=== PATIENT | female | born 1940 | race Caucasian/White ===

== ENCOUNTER 2018-08-19 11:30 | Outpatient (RCR) | payer MEDICARE, SELFPAY ==
[2018-08-01 13:54] VITALS: BP 181/89; PULSE 69; RESP 20; TEMP 36.5; BMI 46.0
--- NOTE | 2018-08-01 15:47 | HP.PCM_ITS ---
(1) Chronic venous insufficiency Status: Chronic Current Visit: Yes Code(s): I87.2 - Venous insufficiency (chronic) (peripheral) (2) Varicose veins with ulcer and inflammation Status: Chronic Current Visit: Yes Code(s): I83.209 - Varicose veins of unspecified lower extremity with both ulcer of unspecified site and inflammation; L97.909 - Non-pressure chronic ulcer of unspecified part of unspecified lower leg with unspecified severity (3) Chronic venous hypertension with ulcer and inflammation Status: Chronic Current Visit: Yes Qualifiers: Laterality: right Qualified Code(s): I87.331 - Chronic venous hypertension (idiopathic) with ulcer and inflammation of right lower extremity; L97.919 - Non-pressure chronic ulcer of unspecified part of right lower leg with unspecified severity Code(s): I87.339 - Chronic venous hypertension (idiopathic) with ulcer and inflammation of unspecified lower extremity; L97.909 - Non-pressure chronic ulcer of unspecified part of unspecified lower leg with unspecified severity (4) 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 Status: Chronic Current Visit: Yes Code(s): I87.039 - Postthrombotic s yndrome with ulcer and inflammation of unspecified lower extremity (5) Leg swelling Status: Chronic Current Visit: Yes Code(s): M79.89 - Other specified soft tissue disorders (6) Leg edema Status: Chronic Current Visit: Yes Code(s): R60.0 - Localized edema (7) History of superficial thrombophlebitis Status: Chronic Current Visit: Yes (8) History of venous ulceration Status: Chronic Current Visit: Yes (9) Venous ulcer of ankle Status: Chronic Current Visit: Yes Qualifiers: Varicose vein presence: with varicose veins Laterality: right Non- pressure ulcer stage: with fat layer exposed Qualified Code(s): I83.013 - Varicose veins of right lower extremity with ulcer of ankle; L97.312 - Non- pressure chronic ulcer of right ankle with fat layer exposed Code(s): I83.003 - Varicose veins of unspecified lower extremity with ulcer of ankle; L97.309 - Non-pressure chronic ulcer of unspecified ankle with unspecified severity (10) Morbid obesity with BMI of 45.0-49.9, adult Status: Chronic Current Visit: Yes Code(s): E66.01 - Morbid (severe) obesity due to excess calories; Z68.42 - Body mass index (BMI) 45.0-49.9, adult (11) Hyperlipidemia Status: Chronic Current Visit: No Code(s): E78.5 - Hyperlipidemia, unspecified (12) Lipodermatosclerosis Status: Chronic Current Visit: Yes Qualifiers: Laterality: bilateral Qualified Code(s): I83.11 - Varicose veins of right lower extremity with inflammation; I83.12 - Varicose veins of left lower extremity with inflammation Code(s): I83.10 - Varicose veins of unspecified lower extremity with inflammation (13) Hyperpigmentation Status: Chronic Current Visit: Yes Code(s): L81.9 - Disorder of pigmentation, unspecified History of Present Illness Date of Service: 08/01/18 Chief Complaint: Chronic venous insufficiency, varicose veins with ulcer and inflammation, chronic venous hypertension with ulcer and inflammation, postphlebitic syndrome with ulcer and inflammation, history of superficial thrombophlebitis, swelling, edema, venous ulcer -right lower extremity History of Wound: This is a 77-year-old female with a long-standing history of chronic venous disease. She presents with an ulceration near the right medial malleolus which is been present for approximately 3 months. It occurred spontaneously, without any history of trauma. She has a history of superficial thrombophlebitis in the right lower extremity. This occurred nearly 30 years ago. She suffers from lower extremity varicose veins, and experiences swelling and edema in her lower extremities at days end. She sleeps in a recumbent position at night, with her legs are slightly elevated. However, she is not very active, and spends long hours each day with her legs in a dependent position. She is morbidly obese. With respect to the current ulceration in the region of her right medial malleolus, she has been using an Unna boot for the last week, but had previously used Aquacel Ag. She has been under the care of Dr. Zelaya. She is also currently taking clindamycin, prescribed in treatment for her right lower extremity ulceration. Patient has been previously treated for an ulceration near the left medial malleolus. Treatment was rendered at the [facility] in [place], [place], by Dr. Denys Aldana. Patient underwent endovenous laser ablation of the left great saphenous vein in February 2018. As result, her left lower extremity venous ulceration has healed, and has remained healed. Past Medical History Past Medical History: Chronic Problems Chronic venous insufficiency (Chronic) Varicose veins with ulcer and inflammation (Chronic) Chronic venous hypertension with ulcer and inflammation (Chronic) 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 (Chronic) Leg swelling (Chronic) Leg edema (Chronic) History of superficial thrombophlebitis (Chronic) History of venous ulceration (Chronic) Venous ulcer of ankle (Chronic) Morbid obesity with BMI of 45.0-49.9, adult (Chronic) Hyperlipidemia (Chronic) Lipodermatosclerosis (Chronic) Hyperpigmentation (Chronic) Past Medical History: Patient has a history of hyperlipidemia and obesity. She also suffers from chronic venous disease, as discussed above. Her history is negative for myocardial infarction, congestive heart failure, cerebrovascular accident, diabetes mellitus, pulmonary disease, renal disease, cancer, and thyroid disease. Surgical History: - - The patient has previously undergone open reduction and internal fixation of the right ankle, in approximately 1989. She is undergone laparoscopic cholecystectomy and right total hip replacement in the past. The patient is a G4, P1 AB 3 (spontaneous) Allergies/Adverse Reactions: Allergies acetaminophen [From Percocet] Allergy (Verified 08/01/18 14:07) Other oxycodone [From Percocet] Allergy (Verified 08/01/18 14:07) Other Home Medications: Ambulatory Orders Medication Instructions Recorded Vitamin B Complex 08/01/18 Vitamin D 1,000 iu PO DAILY 08/01/18 Zoloft 1 mg DAILY 08/01/18 Social History: Patient lives with her , who is severely ill, suffering from cerebrovascular accident, congestive heart failure, and dementia. She does not use alcohol or tobacco products. Lives: Spouse/ Significant Other Smoking Status: Never smoker Tobacco Use: Non-smoker Alcohol: None Drugs: None Review of Systems Constitutional: Denies: Chills, Fever, Weight Change Eyes: Denies: Pain, Vision Change HEENT: Denies: Difficulty Hearing, Difficulty Swallowing, Sinus Congestion Cardiovascular: Denies: Chest Pain, Palpitations Respiratory: Denies: Cough, Shortness of Breath Gastrointestinal: Denies: Diarrhea, Nausea, Vomiting Genitourinary: Denies: Dysuria, Hematuria Endocrine: Denies: Heat/ Cold Intolerance, Polydipsia, Polyuria Hematologic/ Lymphatic: Denies: Easy Bruising, Easy Bleeding - Physical Exam Vital Signs Temp Pulse Resp BP 97.7 F L 69 20 H 181/89 H 08/01/18 13:54 08/01/18 13:54 08/01/18 13:54 08/01/18 13:54 General: Alert, Oriented x3, Cooperative, No apparent distress, Well developed, Well nourished, - - Patient is obese HEENT: Atraumatic, PERRLA, EOMI, Normocephalic Oral: Moist Mucosa Neck: Supple, No JVD, Negative Carotid Bruits, Negative Hepatojugular Reflux, No Nodes, No Nuchal Rigidity, Trachea Midline Lungs: Clear to auscultation, Normal air movement, No rhonchi, No wheeze, No rales Cardiovascular: Regular rate, Regular Rhythm, Normal S1, Normal S2, No murmurs Abdomen: Soft, Non Tender, Non-Distended, Obese Extremities: No clubbing, No cyanosis, No Calf Tenderness, - - Bilateral lower extremity swelling and edema are noted. Multiple varicosities are noted bilaterally, of various sizes. A healed venous ulceration is noted near the left medial malleolus. An open ulceration is noted near the right medial malleolus. Dimensions are documented elsewhere. There is a mild amount of bioburden and nonviable tissue. There is no obvious sign of infection or cellulitis, though swab cultures were obtained. Hyperpigmentation and lipodermatosclerosis are noted in the gaiter areas bilaterally. Peripheral lower extremities are warm and well perfused. Wound Measurements and Assessment WC - Nurse 1 - General Ulcer Measurement Start: 08/01/18 13:13 Freq: Status: Active Protocol: Activity Type Activity Date Activity User E-Sign Co-Sign Detail Recorded Client Recorded Date Recorded By Document 08/01/18 13:54 AN [id number] 08/01/18 14:19 AN 08/01/18 13:54 Wound Center Nurse 1 [Ulcer Assessment] #1 right medial ankle cluster -Combined with other wound No -Current Size (cm) - Length 4.8 -Current Size (cm) - Width 1.1 -Current Size (cm) - Depth 0.2 -Total Square Cm 5.28 -Date of Last Picture (Recall this 08/01/18 field) -Photo Taken Yes -Classification - Thickness Full Thickness without Exposed Support Structure -Exudate Amt Medium -Exudate Type Serosanguineous -Wound Margin Distinct, Outline Attached -Granulation Amt Large (67-100%) -Granulation Quality Red -Slough/Fibrin Yes -Necrosis Amt Small (1-33%) -Necrotic Tissue Type Adherent Slough -Structure Exposed None/Limited to Skin Breakdown -Texture (Capri-wound Skin Appearance) Assessed Localized Edema -Moisture (Capri-wound Skin Appearance Assessed ) -Color (Capri-wound Skin Appearance) Assessed -Temperature (Capri-wound Skin Cool/Cold Appearance) -Tenderness on Palpation (Capri-wound Yes Skin Appearance) -Ulcer Cleansing Rinsed/ Irrigated with Saline -Foul Odor after Cleansing No -Anesthetic Used 4% Lidocaine Solution [Edema Assessment] -Right Calf (cm) 39.3 -Right Ankle (cm) 25.7 -Left Calf (cm) 44 -Left Ankle (cm) 25.4 WC - Nurse 2 - General Ulcer CM Notes Start: 08/01/18 13:13 Freq: Status: Active Protocol: Activity Type Activity Date Activity User E-Sign Co-Sign Detail Recorded Client Recorded Date Recorded By Document 08/01/18 14:42 DV [id number] 08/01/18 14:59 DV 08/01/18 14:42 Wound Center Nurse 2 [Procedure/Treatment] #1 right medial ankle cluster -Time 14:42 -Correct Patient Yes -Correct Side, Site, Position Yes -Correct Procedure Yes -Procedure Performed Yes -Type of Procedure Debridement -Clinical Debridement Subcutaneous -Post Debridement Size (cm) - Length 5.0 -Post Debridement Size (cm) - Width 1.5 -Post Debridement Size (cm) - Depth 0.2 -Total Square Cm 7.50 -Wound/Ulcer Outcome Not Healed -Ulcer Cleansing Rinsed/ Irrigated with Saline -Foul Odor after Cleansing No -Bioengineered Tissue No -Bleeding Controlled with Pressure -Offloading No -Treatment Response Procedure Tolerated Well [See Physician Procedure note for Specifics] Pain Scale: 0-10 Numeric [Pain] -Is Patient Pain Free? Yes Musculoskeletal: No Muscle Wasting Neurological: Cranial nerves II-XII grossly intact, Neuro grossly intact Psych/Mental Status: Normal Affect, Appropriate, Alert and oriented to time, place, person, mood and affect Debridement Note Post-Debridement Measurements/Treatment WC - Nurse 2 - General Ulcer CM Notes Start: 08/01/18 13:13 Freq: Status: Active Protocol: Activity Type Activity Date Activity User E-Sign Co-Sign Detail Recorded Client Recorded Date Recorded By Document 08/01/18 14:42 DV [id number] 08/01/18 14:59 DV 08/01/18 14:42 Wound Center Nurse 2 #1 right medial ankle cluster -Time 14:42 -Correct Patient Yes -Correct Side, Site, Position Yes -Correct Procedure Yes -Procedure Performed Yes -Type of Procedure Debridement -Clinical Debridement Subcutaneous -Post Debridement Size (cm) - Length 5.0 -Post Debridement Size (cm) - Width 1.5 -Post Debridement Size (cm) - Depth 0.2 -Total Square Cm 7.50 -Wound/Ulcer Outcome Not Healed -Ulcer Cleansing Rinsed/ Irrigated with Saline -Foul Odor after Cleansing No -Bioengineered Tissue No -Bleeding Controlled with Pressure -Offloading No -Treatment Response Procedure Tolerated Well Pain Scale: 0-10 Numeric Is Patient Pain Free? Yes Laterality: Right - Medial malleolus Type of Debridement: Excisional debridement Anesthesia Used: 5% Lidocaine Gel Depth: Down to and including healthy tissue, in the subcutaneous layer Percentage of wound debrided: 100 Instrument Used: 5mm curette Tissue Removed: Bioburden and nonviable tissue Severity: Fat Layer Exposed Amount of bleeding with debridement: Mild Bleeding Controlled with: Compression and gauze Patient tolerated procedure well Assessment/Plan Active Problems Chronic venous insufficiency (Chronic) Varicose veins with ulcer and inflammation (Chronic) Chronic venous hypertension with ulcer and inflammation (Chronic) 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 (Chronic) Leg swelling (Chronic) Leg edema (Chronic) History of superficial thrombophlebitis (Chronic) History of venous ulceration (Chronic) Venous ulcer of ankle (Chronic) Morbid obesity with BMI of 45.0-49.9, adult (Chronic) Lipodermatosclerosis (Chronic) Hyperpigmentation (Chronic) Assessment: This is a 77-year-old female with a long-standing history of chronic venous insufficiency, varicose veins with ulceration and inflammation, postphlebitic syndrome with ulceration and inflammation, venous hypertension with ulceration and inflammation, and lower extremity swelling and edema. She presents with an ulceration near the right medial malleolus which has been present for approximately 3 months, and appears related to the patient's chronic venous disease. She has previously had a venous ulceration near the left me dial malleolus, which was treated by means of endovenous laser ablation of the left great saphenous vein earlier this year, in [place], [place]. Patient presents at this time for evaluation and management relative to the ulceration near the right medial malleolus. She is accompanied today by extensive medical records. Unfortunately, many of the records which have been provided are unreadable due to degradation by fax transmission. Stents of laboratory studies have been obtained within the last week through the [facility] laboratory system. Due to eligibility, we are to request re-transmission of this data. A noninvasive lower extremity arterial study was performed as well through the [facility] system, revealing no evidence of arterial insufficiency in either lower extremity. Records from [facility] have also been obtained, and have been reviewed. Plan: We are to implement a regimen of conservative treatment. The measures recommended have been discussed with the patient in detail, as well as with her daughter who is at the bedside. The patient is to elevate her lower extremities as much as possible. Elevation is to be to heart level, or higher. This is to be accomplished as much as possible. The patient is to continue sleeping in a recumbent position with her legs elevated. Leg elevation is to be implemented even during daytime hours. The patient has been encouraged to ambulate and to increase her activity. Prolonged idle standing and sitting has been discouraged. Weight loss has been recommended. Optimization of the patient's oral intake has been advised. We are to implement compression to the lower extremities by means of 3M 2 layer compression wraps to each lower extremity. These compression wraps are to be changed twice weekly. The patient would appear likely to tolerate this degree of compression, given that her noninvasive lower extremity arterial studies demonstrated no evidence of significant arterial occlusive disease when performed within the last year. We are to obtain a noninvasive lower extremity venous study, and the patient is to return for reevaluation in 1 week. Ultimately, the patient may benefit from endothermal ablation of the right great saphenous vein, depending upon the results of her impending venous study. Such a procedure was performed in the left lower extremity, with evidence of patient benefit. Influenza vaccine was not administered today. The patient is not a smoker. She weighs 277 pounds. She stands 5 feet 5 inches tall. Her BMI is 46. This places her in a class III obesity category. Weight loss has been recommended, in collaboration with the patient's primary care physician has been advised.
[2018-08-09 11:47] VITALS: BP 173/82; PULSE 65; RESP 18; TEMP 36.5; BMI 46.0
--- NOTE | 2018-08-09 13:47 | HP.PCM_ITS ---
(1) Chronic venous insufficiency Status: Chronic Current Visit: Yes Code(s): I87.2 - Venous insufficiency (chronic) (peripheral) (2) Varicose veins with ulcer and inflammation Status: Chronic Current Visit: Yes Code(s): I83.209 - Varicose veins of unspecified lower extremity with both ulcer of unspecified site and inflammation; L97.909 - Non-pressure chronic ulcer of unspecified part of unspecified lower leg with unspecified severity (3) Chronic venous hypertension with ulcer and inflammation Status: Chronic Current Visit: Yes Qualifiers: Laterality: right Qualified Code(s): I87.331 - Chronic venous hypertension (idiopathic) with ulcer and inflammation of right lower extremity; L97.919 - Non-pressure chronic ulcer of unspecified part of right lower leg with unspecified severity Code(s): I87.339 - Chronic venous hypertension (idiopathic) with ulcer and inflammation of unspecified lower extremity; L97.909 - Non-pressure chronic ulcer of unspecified part of unspecified lower leg with unspecified severity (4) 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 Status: Chronic Current Visit: Yes Code(s): I87.039 - Postthrombotic s yndrome with ulcer and inflammation of unspecified lower extremity (5) Leg swelling Status: Chronic Current Visit: Yes Code(s): M79.89 - Other specified soft tissue disorders (6) Leg edema Status: Chronic Current Visit: Yes Code(s): R60.0 - Localized edema (7) History of superficial thrombophlebitis Status: Chronic Current Visit: Yes (8) History of venous ulceration Status: Chronic Current Visit: Yes (9) Venous ulcer of ankle Status: Chronic Current Visit: Yes Qualifiers: Varicose vein presence: with varicose veins Laterality: right Non- pressure ulcer stage: with fat layer exposed Qualified Code(s): I83.013 - Varicose veins of right lower extremity with ulcer of ankle; L97.312 - Non- pressure chronic ulcer of right ankle with fat layer exposed Code(s): I83.003 - Varicose veins of unspecified lower extremity with ulcer of ankle; L97.309 - Non-pressure chronic ulcer of unspecified ankle with unspecified severity (10) Morbid obesity with BMI of 45.0-49.9, adult Status: Chronic Current Visit: Yes Code(s): E66.01 - Morbid (severe) obesity due to excess calories; Z68.42 - Body mass index (BMI) 45.0-49.9, adult (11) Hyperlipidemia Status: Chronic Current Visit: No Code(s): E78.5 - Hyperlipidemia, unspecified (12) Lipodermatosclerosis Status: Chronic Current Visit: Yes Qualifiers: Laterality: bilateral Qualified Code(s): I83.11 - Varicose veins of right lower extremity with inflammation; I83.12 - Varicose veins of left lower extremity with inflammation Code(s): I83.10 - Varicose veins of unspecified lower extremity with inflammation (13) Hyperpigmentation Status: Chronic Current Visit: Yes Code(s): L81.9 - Disorder of pigmentation, unspecified History of Present Illness Date of Service: 08/09/18 Chief Complaint: Chronic venous insufficiency, varicose veins with ulcer and inflammation, chronic venous hypertension with ulcer and inflammation, postphlebitic syndrome with ulcer and inflammation, history of superficial thrombophlebitis, swelling, edema, venous ulcer -right lower extremity History of Wound: This is a 77-year-old female with a long-standing history of chronic venous disease. She presents with an ulceration near the right medial malleolus which had been present for approximately 3 months. It occurred spontaneously, without any history of trauma. She has a history of superficial thrombophlebitis in the right lower extremity. This occurred nearly 30 years ago. She suffers from lower extremity varicose veins, and experiences swelling and edema in her lower extremities at days end. She sleeps in a recumbent position at night, with her legs slightly elevated. However, she is not very active, and spends long hours each day with her legs in a dependent position. She is morbidly obese. With respect to the current ulceration in the region of her right medial malleolus, she has been using an [employer] boot recently, but had previously used [employer] Ag. She has been under the care of Dr. Zelaya. She was recently prescribed clindamycin in treatment for her right lower extremity ulceration. The patient has been previously treated for an ulceration near the left medial malleolus. Treatment was rendered at the [facility] in [place], [place], by Dr. Denys Aldana. The patient underwent endovenous laser ablation of the left great saphenous vein in February 2018. As result, her left lower extremity venous ulceration has healed, and has remained healed. Past Medical History Past Medical History: Chronic Problems Chronic venous insufficiency (Chronic) Varicose veins with ulcer and inflammation (Chronic) Chronic venous hypertension with ulcer and inflammation (Chronic) 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 (Chronic) Leg swelling (Chronic) Leg edema (Chronic) History of superficial thrombophlebitis (Chronic) History of venous ulceration (Chronic) Venous ulcer of ankle (Chronic) Morbid obesity with BMI of 45.0-49.9, adult (Chronic) Hyperlipidemia (Chronic) Lipodermatosclerosis (Chronic) Hyperpigmentation (Chronic) Surgical History: - - The patient has previously undergone open reduction and internal fixation of the right ankle, in approximately 1989. She is undergone laparoscopic cholecystectomy and right total hip replacement in the past. The p atient is a G4, P1 AB 3 (spontaneous) Allergies/Adverse Reactions: Allergies acetaminophen [From Percocet] Allergy (Verified 08/01/18 14:07) Other oxycodone [From Percocet] Allergy (Verified 08/01/18 14:07) Other Home Medications: Ambulatory Orders Medication Instructions Recorded Vitamin B Complex 08/01/18 Vitamin D 1,000 iu PO DAILY 08/01/18 Zoloft 1 mg DAILY 08/01/18 Lives: Spouse/ Significant Other Smoking Status: Never smoker Tobacco Use: Non-smoker Alcohol: None Drugs: None Review of Systems Constitutional: Denies: Chills, Fever, Weight Change Eyes: Denies: Pain, Vision Change HEENT: Denies: Difficulty Hearing, Difficulty Swallowing, Sinus Congestion Cardiovascular: Denies: Chest Pain, Palpitations Respiratory: Denies: Cough, Shortness of Breath Gastrointestinal: Denies: Diarrhea, Nausea, Vomiting Genitourinary: Denies: Dysuria, Hematuria Endocrine: Denies: Heat/ Cold Intolerance, Polydipsia, Polyuria Hematologic/ Lymphatic: Denies: Easy Bruising, Easy Bleeding - Physical Exam Vital Signs Temp Pulse Resp BP 97.7 F L 65 18 173/82 H 08/09/18 11:47 08/09/18 11:47 08/09/18 11:47 08/09/18 11:47 General: Alert, Oriented x3, Cooperative, No apparent distress, Well developed, Well nourished HEENT: Atraumatic, PERRLA, EOMI, Normocephalic Oral: Moist Mucosa Neck: No JVD Lungs: Normal air movement Abdomen: Non-Distended Extremities: No clubbing, No cyanosis, No Calf Tenderness, - - Only slight swelling and edema are noted in the right lower extremity. The ulceration near the right medial malleolus persists. There is a small amount of bioburden and nonviable tissue present. There is no obvious infection or cellulitis. Dimensions are documented elsewhere. Wound Measurements and Assessment WC - Nurse 1 - General Ulcer Measurement Start: 08/01/18 13:13 Freq: Status: Active Protocol: Activity Type Activity Date Activity User E-Sign Co-Sign Detail Recorded Client Recorded Date Recorded By Document 08/09/18 11:47 RB [id number] 08/09/18 12:07 RB 08/09/18 11:47 Wound Center Nurse 1 [Ulcer Assessment] #1 right medial ankle cluster -Combined with other wound No -Current Size (cm) - Length 5.6 -Current Size (cm) - Width 2 -Current Size (cm) - Depth 0.3 -Total Square Cm 11.2 -Photo Taken No -Epithelialization Small 1-33% -Tunneling No -Undermining/Tunneling No -Circular Undermining No -Classification - Thickness Full Thickness with Exposed Support Structure -Exudate Amt Small -Exudate Type Serosanguineous -Wound Margin Distinct, Outline Attached -Granulation Amt Large (67-100%) -Granulation Quality Red -Slough/Fibrin Yes -Necrosis Amt Small (1-33%) -Necrotic Tissue Type Adherent Slough -Structure Exposed N/A -Texture (Capri-wound Skin Appearance) Assessed -Moisture (Capri-wound Skin Appearance Assessed ) -Color (Capri-wound Skin Appearance) Hemosiderin Staining -Temperature (Capri-wound Skin No Abnormality Appearance) (Pt Warm) -Tenderness on Palpation (Capri-wound No Skin Appearance) -Ulcer Cleansing Wound Cleanser -Foul Odor after Cleansing No -Anesthetic Used 4% Lidocaine Solution [Edema Assessment] -Lower Limb Edema Present Yes -Right Calf (cm) 43 -Right Ankle (cm) 23.8 -Left Calf (cm) 41.6 -Left Ankle (cm) 24 WC - Nurse 2 - General Ulcer CM Notes Start: 08/01/18 13:13 Freq: Status: Active Protocol: Activity Type Activity Date Activity User E-Sign Co-Sign Detail Recorded Client Recorded Date Recorded By Document 08/09/18 12:34 DV [id number] 08/09/18 12:41 DV 08/09/18 12:34 Wound Center Nurse 2 [Procedure/Treatment] #1 right medial ankle cluster -Time 12:37 -Correct Patient Yes -Correct Side, Site, Position Yes -Correct Procedure Yes -Procedure Performed Yes -Type of Procedure Debridement -Clinical Debridement Subcutaneous -Post Debridement Size (cm) - Length 5.5 -Post Debridement Size (cm) - Width 1.0 -Post Debridement Size (cm) - Depth 0.2 -Total Square Cm 5.50 -Wound/Ulcer Outcome Not Healed -Ulcer Cleansing Rinsed/ Irrigated with Saline -Foul Odor after Cleansing No -Bioengineered Tissue No -Bleeding Controlled with Pressure -Offloading No -Treatment Response Procedure Tolerated Well [See Physician Procedure note for Specifics] Pain Scale: 0-10 Numeric [Pain] -Is Patient Pain Free? Yes Neurological: Cranial nerves II-XII grossly intact, Neuro grossly intact Psych/Mental Status: Normal Affect, Appropriate, Alert and oriented to time, place, person, mood and affect Debridement Note Post-Debridement Measurements/Treatment WC - Nurse 2 - General Ulcer CM Notes Start: 08/01/18 13:13 Freq: Status: Active Protocol: Activity Type Activity Date Activity User E-Sign Co-Sign Detail Recorded Client Recorded Date Recorded By Document 08/01/18 14:42 DV [id number] 08/01/18 14:59 DV Document 08/09/18 12:34 DV [id number] 08/09/18 12:41 DV 08/01/18 08/09/18 14:42 12:34 Wound Center Nurse 2 #1 right medial ankle cluster -Time 14:42 12:37 -Correct Patient Yes Yes -Correct Side, Site, Position Yes Yes -Correct Procedure Yes Yes -Procedure Performed Yes Yes -Type of Procedure Debridement Debridement -Clinical Debridement Subcutaneous Subcutaneous -Post Debridement Size (cm) - Length 5.0 5.5 -Post Debridement Size (cm) - Width 1.5 1.0 -Post Debridement Size (cm) - Depth 0.2 0.2 -Total Square Cm 7.50 5.50 -Wound/Ulcer Outcome Not Healed Not Healed -Ulcer Cleansing Rinsed/ Rinsed/ Irrigated with Irrigated with Saline Saline -Foul Odor after Cleansing No No -Bioengineered Tissue No No -Bleeding Controlled with Pressure Pressure -Offloading No No -Treatment Response Procedure Procedure Tolerated Well Tolerated Well Pain Scale: 0-10 Numeric Is Patient Pain Free? Yes Yes Laterality: Right - Medial malleolus Type of Debridement: Excisional debridement Anesthesia Used: 5% Lidocaine Gel Depth: Down to and including healthy tissue, in the subcutaneous layer Percentage of wound debrided: 100 Instrument Used: 5mm curette Severity: Fat Layer Exposed Amount of bleeding with debridement: Mild Bleeding Controlled with: Compression and gauze Patient tolerated procedure well Assessment/Plan Active Problems Chronic venous insufficiency (Chronic) Varicose veins with ulcer and inflammation (Chronic) Chronic venous hypertension with ulcer and inflammation (Chronic) 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 (Chronic) Leg swelling (Chronic) Leg edema (Chronic) History of superficial thrombophlebitis (Chronic) History of venous ulceration (Chronic) Venous ulcer of ankle (Chronic) Morbid obesity with BMI of 45.0-49.9, adult (Chronic) Lipodermatosclerosis (Chronic) Hyperpigmentation (Chronic) Assessment: This is a 77-year-old female with a long-standing history of chronic venous insufficiency, varicose veins with ulceration and inflammation, postphlebitic syndrome with ulceration and inflammation, venous hypertension with ulceration and inflammation, and lower extremity swelling and edema. She presented with an ulceration near the right medial malleolus which had been present for approximately 3 months, and appears related to the patient's chronic venous disease. She has previously had a venous ulceration near the left medial malleolus, which was treated by means of endovenous laser ablation of the left great saphenous vein earlier this year, in [place], [place]. The patient presented for evaluation and management relative to the ulceration near the right medial malleolus. Many of the medical records which initially accompanied the patient are unreadable due to degradation by fax transmission. Laboratory studies have been performed recently at [facility] through the [facility] laboratory system. Due to illegibility, we have requested re- transmission of this data. The lab results have yet to arrive, and the patient's daughter has committed to retrieving these laboratory results from the patient's primary care physician in [place], [place]. A noninvasive lower extremity arterial study was performed as well through the [facility] system, revealing no evidence of arterial insufficiency in either lower extremity. Records from [facility] have also been obtained, and have been reviewed. Wound cultures performed last week were positive for Staphylococcus aureus, and the patient has been placed on Bactrim DS twice daily, which continues until the current time. Plan: We are to continue a regimen of conservative treatment. The measures recommended have been discussed with the patient in detail, as well as with her daughter, who is at the bedside. The patient is to elevate her lower extremities as much as possible. Elevation is to be to heart level, or higher. This is to be accomplished as much as possible. The patient is to continue sleeping in a recumbent position with her legs elevated. Leg elevation is to be implemented even during daytime hours. The patient has been encouraged to ambulate and to increase her activity. Prolonged idle standing and sitting has been discouraged. Weight loss has been recommended. Optimization of the patient's oral intake has been advised. We are to continue compression to the lower extremities by means of 3M 2 layer compression wrap to each lower extremit y. Aquacel Ag is to be continued topically to the wound near the right medial malleolus. The compression wraps and Aquacel Ag are to be changed twice weekly. The patient would appear likely to tolerate this degree of compression, given that her noninvasive lower extremity arterial studies demonstrated no evidence of significant arterial occlusive disease. We are to obtain a noninvasive lower extremity venous study later today, and the patient is to return for reevaluation in 1 week. Ultimately, the patient may benefit from endothermal ablation of the right great saphenous vein, depending upon the results of her impending venous study. Such a procedure was performed in the left lower extremity, with evidence of patient benefit. The patient is to continue her course of Bactrim DS to completion. Influenza vaccine was not administered today. The patient is not a smoker. She weighs 277 pounds. She stands 5 feet 5 inches tall. Her BMI is 46. This places her in a class III obesity category. Weight loss has been recommended, in collaboration with the patient's primary care physician has been advised.
--- NOTE | 2018-08-09 14:50 | VDLE_ITS ---
Reason For Study: Wound care RIGHT LEFT CFV is compressible, spontaneous, phasic, CFV is compressible, spontaneous, phasic, competent and demonstrates normal competent, and demonstrates normal augmentation. augmentation. FV is compressible, spontaneous, phasic, FV is compressible, spontaneous, phasic, competent and demonstrates normal competent and demonstrates normal augmentation. augmentation. POP V is compressible, spontaneous, phasic, POP V is compressible, spontaneous, phasic, competent and demonstrates normal competent and demonstrates normal augmentation. augmentation. T/P Trunk is compressible. T/P Trunk is compressible. PTV is compressible. PTV is compressible. RT PerV is compressible. LT PerV is compressible. SFJ is INCOMPETENT. SFJ is INCOMPETENT. GSV is INCOMMPETENT throughout for greater GSV above knee Hx of EVLA. than 0.5 seconds and measures 0.64 x 0.66 cm. GSV below knee is competent. ASV anterior thigh is INCOMPETENT for greater ASV from groin medially is INCOMPETENT for than 0.5 seconds and measures 0.50 x 0.50 cm. greater than 0.5 seconds and measures 0.48 x ASV 2 from groin medially is INCOMPETENT for 0.49 cm. greater than 0.5 seconds and measures 0.55 x ASV 2 from groin laterally is INCOMPETENT for 0.54 cm. greater than 0.5 seconds and measures 0.31 x INCOMPETENT cafe server 16 cm above medial 0.31 cm. malleolus. ASV 3 below knee is INCOMPETENT for greater SSV is competent. than 0.5 seconds and measures 0.45 x .0.59 Procedure cm. Exam performed in department. SSV is INCOMPETENT for greater than 0.5 A preliminary report was called and/or faxed seconds and measures 0.25 x 0.25 cm. to WC. Interpretation Summary Deep veins of the lower extremities are bilaterally patent and compressible segmentally. There is no evidence of deep vein thrombosis on either side. Valvular competence appears intact within the proximal deep venous systems bilaterally. The right greater saphenous vein appears patent and compressible segmentally. The left greater saphenous vein has been previously ablated above the knee, but is patent and compressible below the knee. Sapheno-femoral junctions are bilaterally incompetent . The right greater saphenous vein appears segmentally incompetent. The left greater saphenous vein below the knee is competent. The right small saphenous vein is patent and competent. The left small saphenous vein is patent and incompetent. Two incompetent accessory saphenous veins in the right thigh are noted to be incompetent. Two accessory saphenous veins in the left thigh are incompetent. An accessory saphenous vein below the left knee is incompetent. An incompetent cafe server vein is noted in the right calf, located 16 centimeters proximal to the right medial malleolus. Ordering Physician: Jl Ely Referring Physician: Jayden Smith MD Performed By: Marily Leon RVT
[2018-08-12 15:29] VITALS: BP 134/92; PULSE 71; RESP 16; TEMP 36.6; BMI 46.0
[2018-08-16 10:16] VITALS: BP 174/85; PULSE 68; RESP 18; TEMP 36.4; BMI 46.0
--- NOTE | 2018-08-16 11:41 | PCM.WC.HP ---
(1) Chronic venous insufficiency Status: Chronic Current Visit: Yes Code(s): I87.2 - Venous insufficiency (chronic) (peripheral) (2) Varicose veins with ulcer and inflammation Status: Chronic Current Visit: Yes Code(s): I83.209 - Varicose veins of unspecified lower extremity with both ulcer of unspecified site and inflammation; L97.909 - Non-pressure chronic ulcer of unspecified part of unspecified lower leg with unspecified severity (3) Chronic venous hypertension with ulcer and inflammation Status: Chronic Current Visit: Yes Qualifiers: Laterality: right Qualified Code(s): I87.331 - Chronic venous hypertension (idiopathic) with ulcer and inflammation of right lower extremity; L97.919 - Non-pressure chronic ulcer of unspecified part of right lower leg with unspecified severity Code(s): I87.339 - Chronic venous hypertension (idiopathic) with ulcer and inflammation of unspecified lower extremity; L97.909 - Non-pressure chronic ulcer of unspecified part of unspecified lower leg with unspecified severity (4) 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 Status: Chronic Current Visit: Yes Code(s): I87.039 - Postthrombotic syndrome with ulcer and inflammation of unspecified lower extremity (5) Leg swelling Status: Chronic Current Visit: Yes Code(s): M79.89 - Other specified soft tissue disorders (6) Leg edema Status: Chronic Current Visit: Yes Code(s): R60.0 - Localized edema (7) History of superficial thrombophlebitis Status: Chronic Current Visit: Yes (8) History of venous ulceration Status: Chronic Current Visit: Yes (9) Venous ulcer of ankle Status: Chronic Current Visit: Yes Qualifiers: Varicose vein presence: with varicose veins Laterality: right Non-pressure ulcer stage: with fat layer exposed Qualified Code(s): I83.013 - Varicose veins of right lower extremity with ulcer of ankle; L97.312 - Non-pressure chronic ulcer of right ankle with fat layer exposed Code(s): I83.003 - Varicose veins of unspecified lower extremity with ulcer of ankle; L97.309 - Non-pressure chronic ulcer of unspecified ankle with unspecified severity (10) Morbid obesity with BMI of 45.0-49.9, adult Status: Chronic Current Visit: Yes Code(s): E66.01 - Morbid (severe) obesity due to excess calories; Z68.42 - Body mass index (BMI) 45.0-49.9, adult (11) Hyperlipidemia Status: Chronic Current Visit: No Code(s): E78.5 - Hyperlipidemia, unspecified (12) Lipodermatosclerosis Status: Chronic Current Visit: Yes Qualifiers: Laterality: bilateral Qualified Code(s): I83.11 - Varicose veins of right lower extremity with inflammation; I83.12 - Varicose veins of left lower extremity with inflammation Code(s): I83.10 - Varicose veins of unspecified lower extremity with inflammation (13) Hyperpigmentation Status: Chronic Current Visit: Yes Code(s): L81.9 - Disorder of pigmentation, unspecified History of Present Illness Date of Service: 08/16/18 Chief Complaint: Chronic venous insufficiency, varicose veins with ulcer and inflammation, chronic venous hypertension with ulcer and inflammation, postphlebitic syndrome with ulcer and inflammation, history of superficial thrombophlebitis, swelling, edema, venous ulcer -right lower extremity History of Wound: This is a 77-year-old female with a long-standing history of chronic venous disease. She presents with an ulceration near the right medial malleolus which had been present for approximately 3 months. It occurred spontaneously, without any history of trauma. She has a history of superficial thrombophlebitis in the right lower extremity. This occurred nearly 30 years ago. She suffers from lower extremity varicose veins, and experiences swelling and edema in her lower extremities at days end. She sleeps in a recumbent position at night, with her legs slightly elevated. However, she is not very active, and spends long hours each day with her legs in a dependent position. She is morbidly obese. With respect to the current ulceration in the region of her right medial malleolus, she has been using an [employer] boot recently, but had previously used [employer] Ag. She has been under the care of Dr. Zelaya. She was recently prescribed clindamycin in treatment for her right lower extremity ulceration. The patient has been previously treated for an ulceration near the left medial malleolus. Treatment was rendered at the [facility] in [place], [place], by Dr. Denys Aldana. The patient underwent endovenous laser ablation of the left great saphenous vein in February 2018. As result, her left lower extremity venous ulceration has healed, and has remained healed. Past Medical History Past Medical History: Chronic Problems Chronic venous insufficiency (Chronic) Varicose veins with ulcer and inflammation (Chronic) Chronic venous hypertension with ulcer and inflammation (Chronic) 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 (Chronic) Leg swelling (Chronic) Leg edema (Chronic) History of superficial thrombophlebitis (Chronic) History of venous ulceration (Chronic) Venous ulcer of ankle (Chronic) Morbid obesity with BMI of 45.0-49.9, adult (Chronic) Hyperlipidemia (Chronic) Lipodermatosclerosis (Chronic) Hyperpigmentation (Chronic) Surgical History: - - The patient has previously undergone open reduction and internal fixation of the right ankle, in approximately 1989. She is undergone laparoscopic cholecystectomy and right total hip replacement in the past. The patient is a G4, P1 AB 3 (spontaneous) Allergies/Adverse Reactions: Allergies acetaminophen [From Percocet] Allergy (Verified 08/01/18 14:07) Other oxycodone [From Percocet] Allergy (Verified 08/01/18 14:07) Other Home Medications: Ambulatory Orders Medication Instructions Recorded Vitamin B Complex 08/01/18 Vitamin D 1,000 iu PO DAILY 08/01/18 Zoloft 1 mg DAILY 08/01/18 Lives: Spouse/ Significant Other Smoking Status: Never smoker Tobacco Use: Non-smoker Alcohol: None Drugs: None Review of Systems Constitutional: Denies: Chills, Fever, Weight Change Eyes: Denies: Pain, Vision Change HEENT: Denies: Difficulty Hearing, Difficulty Swallowing, Sinus Congestion Cardiovascular: Denies: Chest Pain, Palpitations Respiratory: Denies: Cough, Shortness of Breath Gastrointestinal: Denies: Diarrhea, Nausea, Vomiting Genitourinary: Denies: Dysuria, Hematuria Endocrine: Denies: Heat/ Cold Intolerance, Polydipsia, Polyuria Hematologic/ Lymphatic: Denies: Easy Bruising, Easy Bleeding - Physical Exam Vital Signs Temp Pulse Resp BP 97.5 F L 68 18 174/85 H 08/16/18 10:16 08/16/18 10:16 08/16/18 10:16 08/16/18 10:16 General: Alert, Oriented x3, Cooperative, No apparent distress, Well developed, Well nourished, - - The patient is obese HEENT: Atraumatic, PERRLA, EOMI, Normocephalic Oral: Moist Mucosa Neck: No JVD Lungs: Normal air movement Abdomen: Non-Distended Extremities: No clubbing, No cyanosis, No Calf Tenderness, - - The swelling and edema in the right lower extremity appears to be reasonably well controlled. The swelling and edema in the left lower extremity is also well controlled. The ulceration near the right medial malleolus is smaller in size. It is responding well to current management. There is a small amount of bioburden. Dimensions are documented elsewhere. Scattered varicosities are noted diffusely. Wound Measurements and Assessment WC - Nurse 1 - General Ulcer Measurement Start: 08/01/18 13:13 Freq: Status: Active Protocol: Activity Type Activity Date Activity User E-Sign Co-Sign Detail Recorded Client Recorded Date Recorded By Document 08/16/18 10:16 LENNY [id number] 08/16/18 10:28 LENNY 08/16/18 10:16 Wound Center Nurse 1 [Ulcer Assessment] #1 right medial ankle cluster -Combined with other wound No -Current Size (cm) - Length 0.6 -Current Size (cm) - Width 1.6 -Current Size (cm) - Depth 0.2 -Total Square Cm 0.96 -Photo Taken No -Epithelialization Large 67-100% -Tunneling No -Undermining/Tunneling No -Circular Undermining No -Exudate Amt Small -Exudate Type Serosanguineous -Wound Margin Flat & Intact -Granulation Amt Medium (34-66%) -Granulation Quality [facility] [facility] -Slough/Fibrin Yes -Necrosis Amt Medium (34-66%) -Necrotic Tissue Type Adherent Slough -Structure Exposed N/A -Texture (Capri-wound Skin Appearance) Assessed, Localized Edema -Moisture (Capri-wound Skin Appearance Assessed,Dry/ ) Scaly -Color (Capri-wound Skin Appearance) Assessed, Hemosiderin Staining -Temperature (Capri-wound Skin No Abnormality Appearance) (Pt Warm) -Tenderness on Palpation (Capri-wound No Skin Appearance) -Ulcer Cleansing Wound Cleanser -Foul Odor after Cleansing No -Anesthetic Used 5% Lidocaine Gel [Edema Assessment] -Lower Limb Edema Present Yes -Right Calf (cm) 40.5 -Right Ankle (cm) 25.2 -Left Calf (cm) 42.2 -Left Ankle (cm) 24.0 WC - Nurse 2 - General Ulcer CM Notes Start: 08/01/18 13:13 Freq: Status: Active Protocol: Activity Type Activity Date Activity User E-Sign Co-Sign Detail Recorded Client Recorded Date Recorded By Document 08/16/18 11:26 DV [id number] 08/16/18 11:30 DV 08/16/18 11:26 Wound Center Nurse 2 [Procedure/Treatment] #1 right medial ankle cluster -Time 11:27 -Correct Patient Yes -Correct Side, Site, Position Yes -Correct Procedure Yes -Procedure Performed Yes -Type of Procedure Debridement -Clinical Debridement Subcutaneous -Post Debridement Size (cm) - Length 0.9 -Post Debridement Size (cm) - Width 1.8 -Post Debridement Size (cm) - Depth 0.2 -Total Square Cm 1.62 -Wound/Ulcer Outcome Not Healed -Ulcer Cleansing Rinsed/ Irrigated with Saline -Foul Odor after Cleansing No -Bioengineered Tissue No -Bleeding Controlled with Pressure -Offloading No -Treatment Response Procedure Tolerated Well [See Physician Procedure note for Specifics] Pain Scale: 0-10 Numeric [Pain] -Is Patient Pain Free? Yes Musculoskeletal: No Muscle Wasting Neurological: Cranial nerves II-XII grossly intact, Neuro grossly intact Psych/Mental Status: Normal Affect, Appropriate, Alert and oriented to time, place, person, mood and affect Debridement Note Post-Debridement Measurements/Treatment - Nurse 2 - General Ulcer CM Notes Start: 08/01/18 13:13 Freq: Status: Active Protocol: Activity Type Activity Date Activity User E-Sign Co-Sign Detail Recorded Client Recorded Date Recorded By Document 08/01/18 14:42 DV [id number] 08/01/18 14:59 DV Document 08/09/18 12:34 DV [id number] 08/09/18 12:41 DV Document 08/16/18 11:26 DV [id number] 08/16/18 11:30 DV 08/01/18 08/09/18 08/16/18 14:42 12:34 11:26 Wound Center Nurse 2 #1 right medial ankle cluster -Time 14:42 12:37 11:27 -Correct Patient Yes Yes Yes -Correct Side, Site, Position Yes Yes Yes -Correct Procedure Yes Yes Yes -Procedure Performed Yes Yes Yes -Type of Procedure Debridement Debridement Debridement -Clinical Debridement Subcutaneous Subcutaneous Subcutaneous -Post Debridement Size (cm) - Length 5.0 5.5 0.9 -Post Debridement Size (cm) - Width 1.5 1.0 1.8 -Post Debridement Size (cm) - Depth 0.2 0.2 0.2 -Total Square Cm 7.50 5.50 1.62 -Wound/Ulcer Outcome Not Healed Not Healed Not Healed -Ulcer Cleansing Rinsed/ Rinsed/ Rinsed/ Irrigated with Irrigated with Irrigated with Saline Saline Saline -Foul Odor after Cleansing No No No -Bioengineered Tissue No No No -Bleeding Controlled with Pressure Pressure Pressure -Offloading No No No -Treatment Response Procedure Procedure Procedure Tolerated Well Tolerated Well Tolerated Well Pain Scale: 0-10 Numeric Is Patient Pain Free? Yes Yes Yes Laterality: Right - Medial malleolus Type of Debridement: Excisional debridement Anesthesia Used: 5% Lidocaine Gel Depth: Down to and including healthy tissue, in the subcutaneous layer Percentage of wound debrided: 100 Instrument Used: 3mm curette Tissue Removed: Bioburden and nonviable tissue Severity: Fat Layer Exposed Amount of bleeding with debridement: Mild Bleeding Controlled with: Compression and gauze Patient tolerated procedure well Assessment/Plan Active Problems Chronic venous insufficiency (Chronic) Varicose veins with ulcer and inflammation (Chronic) Chronic venous hypertension with ulcer and inflammation (Chronic) 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 (Chronic) Leg swelling (Chronic) Leg edema (Chronic) History of superficial thrombophlebitis (Chronic) History of venous ulceration (Chronic) Venous ulcer of ankle (Chronic) Morbid obesity with BMI of 45.0-49.9, adult (Chronic) Lipodermatosclerosis (Chronic) Hyperpigmentation (Chronic) Assessment: This is a 77-year-old female with a long-standing history of chronic venous insufficiency, varicose veins with ulceration and inflammation, postphlebitic syndrome with ulceration and inflammation, venous hypertension with ulceration and inflammation, and lower extremity swelling and edema. She presented with an ulceration near the right medial malleolus which had been present for approximately 3 months, and appears related to the patient's chronic venous disease. She has previously had a venous ulceration near the left medial malleolus, which was treated by means of endovenous laser ablation of the left great saphenous vein earlier this year, in [place], [place]. The patient presented for evaluation and management relative to the ulceration near the right medial malleolus. A noninvasive lower extremity arterial study was performed as well through the [facility] system, revealing no evidence of arterial insufficiency in either lower extremity. Records from [facility] have also been obtained, and have been reviewed. Wound cultures performed last week were positive for Staphylococcus aureus, and the patient has been placed on Bactrim DS twice daily, which continues until the current time. Recent laboratory studies have been obtained from the hospital in [place], [place]. Results are as follows: White blood count 6.8, hemoglobin 13.6, hematocrit 40.3, platelets 242,000, sodium 140, potassium 4.0, chloride 105, BUN 20, creatinine 0.8, calcium 9.3, total protein 7.1, albumin 3.9, total bilirubin 0.6. The patient has recently undergone a venous duplex examination, which reveals incompetence right great saphenous vein, 2 accessory saphenous veins, and a tray setter located 16 cm proximal to the right medial malleolus. Plan: We are to continue a regimen of conservative treatment. The measures recommended have been discussed with the patient in detail, as well as with her daughter, who is at the bedside. The patient is to elevate her lower extremities as much as possible. Elevation is to be to heart level, or higher. This is to be accomplished as much as possible. The patient is to continue sleeping in a recumbent position with her legs elevated. Leg elevation is to be implemented even during daytime hours. The patient has been encouraged to ambulate and to increase her activity. Prolonged idle standing and sitting has been discouraged. Weight loss has been recommended. Optimization of the patient's oral intake has been advised. We are to continue compression to the lower extremities by means of 3M 2 layer compression wrap to each lower extremity. Aquacel Ag is to be continued topically to the wound near the right medial malleolus. The compression wraps and Aquacel Ag are to be changed twice weekly. Ultimately, the patient may benefit from endothermal ablation of the right great saphenous vein, though conservative measures will be implemented preferentially. Such a procedure was performed in the left lower extremity, with evidence of patient benefit. The patient is to continue her course of Bactrim DS to completion. Influenza vaccine was not administered today. The patient is not a smoker. She weighs 277 pounds. She stands 5 feet 5 inches tall. Her BMI is 46. This places her in a class III obesity category. Weight loss has been recommended, in collaboration with the patient's primary care physician has been advised.
[2018-08-19 12:17] VITALS: BP 129/88; PULSE 67; RESP 16; TEMP 36.3; BMI 46.0
== END 2018-08-21 23:59 ==
LOC: WC 11:30
PROVIDERS: Family Provider Family Medicine; PCP Family Medicine; Referring Provider Surgery; Visit Provider Surgery
DX: I83.213 Varicose veins of right lower extremity with both ulcer of ankle and inflammation (principal); L97.312 Non-pressure chronic ulcer of right ankle with fat layer exposed; E66.01 Morbid (severe) obesity due to excess calories; E78.5 Hyperlipidemia, unspecified; R60.0 Localized edema; Z68.42 Body mass index [BMI] 45.0-49.9, adult; Z71.3 Dietary counseling and surveillance; Z86.72 Personal history of thrombophlebitis; Z79.899 Other long term (current) drug therapy
CPT/HCPCS: 11042; 29581; 87070; 87075; 87077; 87186; 87205; 93970; 99211; 99213; G0463

== ENCOUNTER 2018-09-20 10:00 | Outpatient (RCR) | payer MEDICARE, SELFPAY ==
[2018-08-22 01:04] VITALS: BP 129/88; PULSE 67; RESP 16; TEMP 36.3
[2018-08-23 10:18] VITALS: BP 150/80; PULSE 78; RESP 16; TEMP 37; BMI 46.0
--- NOTE | 2018-08-23 11:06 | PCM.WC.HP ---
(1) Chronic venous insufficiency Status: Chronic Current Visit: Yes Code(s): I87.2 - Venous insufficiency (chronic) (peripheral) (2) Varicose veins with ulcer and inflammation Status: Chronic Current Visit: Yes Code(s): I83.209 - Varicose veins of unspecified lower extremity with both ulcer of unspecified site and inflammation; L97.909 - Non-pressure chronic ulcer of unspecified part of unspecified lower leg with unspecified severity (3) Chronic venous hypertension with ulcer and inflammation Status: Chronic Current Visit: Yes Qualifiers: Laterality: right Code(s): I87.339 - Chronic venous hypertension (idiopathic) with ulcer and inflammation of unspecified lower extremity; L97.909 - Non-pressure chronic ulcer of unspecified part of unspecified lower leg with unspecified severity (4) 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 Status: Chronic Current Visit: Yes Code(s): I87.039 - Postthrombotic syndrome with ulcer and inflammation of unspecified lower extremity (5) Leg swelling Status: Chronic Current Visit: Yes Code(s): M79.89 - Other specified soft tissue disorders (6) Leg edema Status: Chronic Current Visit: Yes Code(s): R60.0 - Localized edema (7) History of superficial thrombophlebitis Status: Chronic Current Visit: Yes (8) History of venous ulceration Status: Chronic Current Visit: Yes (9) Venous ulcer of ankle Status: Chronic Current Visit: Yes Qualifiers: Varicose vein presence: with varicose veins Laterality: right Non-pressure ulcer stage: with fat layer exposed Qualified Code(s): I83.013 - Varicose veins of right lower extremity with ulcer of ankle; L97.312 - Non-pressure chronic ulcer of right ankle with fat layer exposed Code(s): I83.003 - Varicose veins of unspecified lower extremity with ulcer of ankle; L97.309 - Non-pressure chronic ulcer of unspecified ankle with unspecified severity (10) Morbid obesity with BMI of 45.0-49.9, adult Status: Chronic Current Visit: Yes Code(s): E66.01 - Morbid (severe) obesity due to excess calories; Z68.42 - Body mass index (BMI) 45.0-49.9, adult (11) Hyperlipidemia Status: Chronic Current Visit: No Code(s): E78.5 - Hyperlipidemia, unspecified (12) Lipodermatosclerosis Status: Chronic Current Visit: Yes Qualifiers: Laterality: bilateral Qualified Code(s): I83.11 - Varicose veins of right lower extremity with inflammation; I83.12 - Varicose veins of left lower extremity with inflammation Code(s): I83.10 - Varicose veins of unspecified lower extremity with inflammation (13) Hyperpigmentation Status: Chronic Current Visit: Yes Code(s): L81.9 - Disorder of pigmentation, unspecified History of Present Illness Date of Service: 08/23/18 Chief Complaint: Chronic venous insufficiency, varicose veins with ulcer and inflammation, chronic venous hypertension with ulcer and inflammation, postphlebitic syndrome with ulcer and inflammation, history of superficial thrombophlebitis, swelling, edema, venous ulcer -right lower extremity History of Wound: This is a 77-year-old female with a long-standing history of chronic venous disease. She presents with an ulceration near the right medial malleolus which had been present for approximately 3 months. It occurred spontaneously, without any history of trauma. She has a history of superficial thrombophlebitis in the right lower extremity. This occurred nearly 30 years ago. She suffers from lower extremity varicose veins, and experiences swelling and edema in her lower extremities at days end. She sleeps in a recumbent position at night, with her legs slightly elevated. However, she is not very active, and spends long hours each day with her legs in a dependent position. She is morbidly obese. With respect to the current ulceration in the region of her right medial malleolus, she has been using an [employer] boot recently, but had previously used [email or web address] Ag. She has been under the care of Dr. Zelaya. She was recently prescribed clindamycin in treatment for her right lower extremity ulceration. The patient has been previously treated for an ulceration near the left medial malleolus. Treatment was rendered at the [facility] in [place], [place], by Dr. Denys Aldana. The patient underwent endovenous laser ablation of the left great saphenous vein in February 2018. As result, her left lower extremity venous ulceration has healed, and has remained healed. Past Medical History Past Medical History: Chronic Problems Chronic venous insufficiency (Chronic) Varicose veins with ulcer and inflammation (Chronic) Chronic venous hypertension with ulcer and inflammation (Chronic) 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 (Chronic) Leg swelling (Chronic) Leg edema (Chronic) History of superficial thrombophlebitis (Chronic) History of venous ulceration (Chronic) Venous ulcer of ankle (Chronic) Morbid obesity with BMI of 45.0-49.9, adult (Chronic) Hyperlipidemia (Chronic) Lipodermatosclerosis (Chronic) Hyperpigmentation (Chronic) Surgical History: - - The patient has previously undergone open reduction and internal fixation of the right ankle, in approximately 1989. She is undergone laparoscopic cholecystectomy and right total hip replacement in the past. The patient is a G4, P1 AB 3 (spontaneous) Allergies/Adverse Reactions: Allergies acetaminophen [From Percocet] Allergy (Verified 08/01/18 14:07) Other oxycodone [From Percocet] Allergy (Verified 08/01/18 14:07) Other Home Medications: Ambulatory Orders Medication Instructions Recorded Vitamin B Complex 08/01/18 Vitamin D 1,000 iu PO DAILY 08/01/18 Zoloft 1 mg DAILY 08/01/18 Smoking Status: Never smoker Tobacco Use: Non-smoker Review of Systems Constitutional: Denies: Chills, Fever, Weight Change Eyes: Denies: Pain, Vision Change HEENT: Denies: Difficulty Hearing, Difficulty Swallowing, Sinus Congestion Cardiovascular: Denies: Chest Pain, Palpitations Respiratory: Denies: Cough, Shortness of Breath Gastrointestinal: Denies: Diarrhea, Nausea, Vomiting Genitourinary: Denies: Dysuria, Hematuria Endocrine: Denies: Heat/ Cold Intolerance, Polydipsia, Polyuria Hematologic/ Lymphatic: Denies: Easy Bruising, Easy Bleeding - Physical Exam Vital Signs Temp Pulse Resp BP 98.6 F 78 16 150/80 H 08/23/18 10:18 08/23/18 10:18 08/23/18 10:18 08/23/18 10:18 General: Alert, Oriented x3, Cooperative, No apparent distress, Well developed, Well nourished HEENT: Atraumatic, PERRLA, EOMI, Normocephalic Oral: Moist Mucosa Neck: No JVD Lungs: Normal air movement Abdomen: Non-Distended Extremities: No clubbing, No cyanosis, No Calf Tenderness, - - Mild swelling and edema persist in the lower extremities. The ulcer near the right medial malleolus is smaller in size. Dimensions are documented elsewhere. There is no sign of infection or cellulitis. There is a mild amount of bioburden. Skin: No rashes Wound Measurements and Assessment - Nurse 1 - General Ulcer Measurement Start: 08/23/18 10:18 Freq: Status: Active Protocol: Activity Type Activity Date Activity User E-Sign Co-Sign Detail Recorded Client Recorded Date Recorded By Document 08/23/18 10:18 LENNY [id number] 08/23/18 10:30 LENNY 08/23/18 10:18 Wound Center Nurse 1 [Ulcer Assessment] #1 right medial ankle cluster -Combined with other wound No -Current Size (cm) - Length 0.2 -Current Size (cm) - Width 0.8 -Current Size (cm) - Depth 0.1 -Total Square Cm 0.16 -Photo Taken No -Epithelialization Small 1-33% -Tunneling No -Undermining/Tunneling No -Circular Undermining No -Exudate Amt Small -Exudate Type Serosanguineous -Wound Margin Flat & Intact -Granulation Amt Medium (34-66%) -Granulation Quality Red -Slough/Fibrin Yes -Necrosis Amt Medium (34-66%) -Necrotic Tissue Type Adherent Slough -Structure Exposed N/A -Texture (Capri-wound Skin Appearance) Assessed -Moisture (Capri-wound Skin Appearance Dry/Scaly ) -Color (Capri-wound Skin Appearance) Assessed, Hemosiderin Staining -Temperature (Capri-wound Skin No Abnormality Appearance) (Pt Warm) -Tenderness on Palpation (Capri-wound No Skin Appearance) -Ulcer Cleansing Wound Cleanser -Foul Odor after Cleansing No -Anesthetic Used 4% Lidocaine Solution [Edema Assessment] -Lower Limb Edema Present Yes -Right Calf (cm) 40.3 -Right Ankle (cm) 24.5 -Left Calf (cm) 48.7 -Left Ankle (cm) 24.8 - Nurse 2 - General Ulcer CM Notes Start: 08/23/18 10:18 Freq: Status: Active Protocol: Activity Type Activity Date Activity User E-Sign Co-Sign Detail Recorded Client Recorded Date Recorded By Document 08/23/18 10:59 MIKE [id number] 08/23/18 11:01 MIKE 08/23/18 10:59 Wound Center Nurse 2 [Procedure/Treatment] #1 right medial ankle cluster -Time 11:00 -Correct Patient Yes -Correct Side, Site, Position Yes -Correct Procedure Yes -Procedure Performed Yes -Type of Procedure Debridement -Clinical Debridement Subcutaneous -Post Debridement Size (cm) - Length 0.9 -Post Debridement Size (cm) - Width 0.5 -Post Debridement Size (cm) - Depth 0.5 -Total Square Cm 0.45 -Wound/Ulcer Outcome Not Healed -Ulcer Cleansing Rinsed/ Irrigated with Saline -Foul Odor after Cleansing No -Bioengineered Tissue No -Bleeding Controlled with Pressure -Offloading No -Treatment Response Procedure Tolerated Well [See Physician Procedure note for Specifics] Pain Scale: 0-10 Numeric [Pain] -Is Patient Pain Free? Yes Musculoskeletal: No Muscle Wasting Neurological: Cranial nerves II-XII grossly intact, Neuro grossly intact Psych/Mental Status: Normal Affect, Appropriate, Alert and oriented to time, place, person, mood and affect Debridement Note Post-Debridement Measurements/Treatment WC - Nurse 2 - General Ulcer CM Notes Start: 08/23/18 10:18 Freq: Status: Active Protocol: Activity Type Activity Date Activity User E-Sign Co-Sign Detail Recorded Client Recorded Date Recorded By Document 08/23/18 10:59 DV [id number] 08/23/18 11:01 DV 08/23/18 10:59 Wound Center Nurse 2 #1 right medial ankle cluster -Time 11:00 -Correct Patient Yes -Correct Side, Site, Position Yes -Correct Procedure Yes -Procedure Performed Yes -Type of Procedure Debridement -Clinical Debridement Subcutaneous -Post Debridement Size (cm) - Length 0.9 -Post Debridement Size (cm) - Width 0.5 -Post Debridement Size (cm) - Depth 0.5 -Total Square Cm 0.45 -Wound/Ulcer Outcome Not Healed -Ulcer Cleansing Rinsed/ Irrigated with Saline -Foul Odor after Cleansing No -Bioengineered Tissue No -Bleeding Controlled with Pressure -Offloading No -Treatment Response Procedure Tolerated Well Pain Scale: 0-10 Numeric Is Patient Pain Free? Yes Laterality: Right - Medial malleolus Type of Debridement: Excisional debridement Anesthesia Used: 5% Lidocaine Gel Depth: Down to and including healthy tissue, in the subcutaneous layer Percentage of wound debrided: 100 Instrument Used: 3mm curette Tissue Removed: Bioburden Severity: Fat Layer Exposed Amount of bleeding with debridement: Mild Bleeding Controlled with: Compression and gauze Patient tolerated procedure well Assessment/Plan Active Problems Chronic venous insufficiency (Chronic) Varicose veins with ulcer and inflammation (Chronic) Chronic venous hypertension with ulcer and inflammation (Chronic) 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 (Chronic) Leg swelling (Chronic) Leg edema (Chronic) History of superficial thrombophlebitis (Chronic) History of venous ulceration (Chronic) Venous ulcer of ankle (Chronic) Morbid obesity with BMI of 45.0-49.9, adult (Chronic) Lipodermatosclerosis (Chronic) Hyperpigmentation (Chronic) Assessment: This is a 77-year-old female with a long-standing history of chronic venous insufficiency, varicose veins with ulceration and inflammation, postphlebitic syndrome with ulceration and inflammation, venous hypertension with ulceration and inflammation, and lower extremity swelling and edema. She presented with an ulceration near the right medial malleolus which had been present for approximately 3 months, and appears related to the patient's chronic venous disease. She has previously had a venous ulceration near the left medial malleolus, which was treated by means of endovenous laser ablation of the left great saphenous vein earlier this year, in [place], [place]. The patient presented for evaluation and management relative to the ulceration near the right medial malleolus. A noninvasive lower extremity arterial study was performed as well through the [employer] system, revealing no evidence of arterial insufficiency in either lower extremity. Records from [facility] have also been obtained, and have been reviewed. Wound cultures performed last week were positive for Staphylococcus aureus, and the patient has been placed on Bactrim DS twice daily, which continues until the current time. Recent laboratory studies have been obtained from the hospital in [place], [place]. Results are as follows: White blood count 6.8, hemoglobin 13.6, hematocrit 40.3, platelets 242,000, sodium 140, potassium 4.0, chloride 105, BUN 20, creatinine 0.8, calcium 9.3, total protein 7.1, albumin 3.9, total bilirubin 0.6. The patient has recently undergone a venous duplex examination, which reveals incompetence right great saphenous vein, 2 accessory saphenous veins, and a management lecturer located 16 cm proximal to the right medial malleolus. Plan: We are to continue a regimen of conservative treatment. The measures recommended have been discussed with the patient in detail, as well as with her [id number], who is at the bedside. The patient is to elevate her lower extremities as much as possible. Elevation is to be to heart level, or higher. This is to be accomplished as much as possible. The patient is to continue sleeping in a recumbent position with her legs elevated. Leg elevation is to be implemented even during daytime hours. The patient has been encouraged to ambulate and to increase her activity. Prolonged idle standing and sitting has been discouraged. Weight loss has been recommended. Optimization of the patient's oral intake has been advised. We are to continue compression to the lower extremities by means of 3M 2 layer compression wrap to each lower extremity. Aquacel Ag is to be continued topically to the wound near the right medial malleolus. The compression wraps and Aquacel Ag are to be changed twice weekly. Ultimately, the patient may benefit from endothermal ablation of the right great saphenous vein, though conservative measures will be implemented preferentially. Such a procedure was performed in the left lower extremity, with evidence of patient benefit. The patient has completed her course of Bactrim DS. Influenza vaccine was not administered today. The patient is not a smoker. She weighs 277 pounds. She stands 5 feet 5 inches tall. Her BMI is 46. This places her in a class III obesity category. Weight loss has been recommended, in collaboration with the patient's primary care physician has been advised.
[2018-08-26 13:35] VITALS: BP 137/73; PULSE 67; RESP 16; TEMP 36.2; BMI 46.0
[2018-08-30 10:09] VITALS: BP 145/90; PULSE 68; RESP 16; TEMP 35.7; BMI 46.0
--- NOTE | 2018-08-30 10:56 | HP.PCM_ITS ---
(1) Chronic venous insufficiency Status: Chronic Current Visit: Yes Code(s): I87.2 - Venous insufficiency (chronic) (peripheral) (2) Varicose veins with ulcer and inflammation Status: Chronic Current Visit: Yes Code(s): I83.209 - Varicose veins of unspecified lower extremity with both ulcer of unspecified site and inflammation; L97.909 - Non-pressure chronic ulcer of unspecified part of unspecified lower leg with unspecified severity (3) Chronic venous hypertension with ulcer and inflammation Status: Chronic Current Visit: Yes Qualifiers: Laterality: right Code(s): I87.339 - Chronic venous hypertension (idiopathic) with ulcer and inflammation of unspecified lower extremity; L97.909 - Non-pressure chronic ulcer of unspecified part of unspecified lower leg with unspecified severity (4) 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 Status: Chronic Current Visit: Yes Code(s): I87.039 - Postthrombotic syndrome with ulcer and inflammation of unspecified lower extremity (5) Leg swelling Status: Chronic Current Visit: Yes Code(s): M79.89 - Other specified soft t issue disorders (6) Leg edema Status: Chronic Current Visit: Yes Code(s): R60.0 - Localized edema (7) History of superficial thrombophlebitis Status: Chronic Current Visit: Yes (8) History of venous ulceration Status: Chronic Current Visit: Yes (9) Venous ulcer of ankle Status: Chronic Current Visit: Yes Qualifiers: Varicose vein presence: with varicose veins Laterality: right Non- pressure ulcer stage: with fat layer exposed Qualified Code(s): I83.013 - Varicose veins of right lower extremity with ulcer of ankle; L97.312 - Non- pressure chronic ulcer of right ankle with fat layer exposed Code(s): I83.003 - Varicose veins of unspecified lower extremity with ulcer of ankle; L97.309 - Non-pressure chronic ulcer of unspecified ankle with unspecified severity (10) Morbid obesity with BMI of 45.0-49.9, adult Status: Chronic Current Visit: Yes Code(s): E66.01 - Morbid (severe) obesity due to excess calories; Z68.42 - Body mass index (BMI) 45.0-49.9, adult (11) Hyperlipidemia Status: Chronic Current Visit: No Code(s): E78.5 - Hyperlipidemia, unspecified (12) Lipodermatosclerosis Status: Chronic Current Visit: Yes Qualifiers: Laterality: bilateral Qualified Code(s): I83.11 - Varicose veins of right lower extremity with inflammation; I83.12 - Varicose veins of left lower extremity with inflammation Code(s): I83.10 - Varicose veins of unspecified lower extremity with inflammation (13) Hyperpigmentation Status: Chronic Current Visit: Yes Code(s): L81.9 - Disorder of pigmentation, unspecified History of Present Illness Date of Service: 08/30/18 Chief Complaint: Chronic venous insufficiency, varicose veins with ulcer and inflammation, chronic venous hypertension with ulcer and inflammation, postphlebitic syndrome with ulcer and inflammation, history of superficial thrombophlebitis, swelling, edema, venous ulcer -right lower extremity History of Wound: This is a 77-year-old female with a long-standing history of chronic venous disease. She presents with an ulceration near the right medial malleolus which had been present for approximately 3 months. It occurred spontaneously, without any history of trauma. She has a history of superficial thrombophlebitis in the right lower extremity. This occurred nearly 30 years ago. She suffers from lower extremity varicose veins, and experiences swelling and edema in her lower extremities at days end. She sleeps in a recumbent position at night, with her legs slightly elevated. However, she is not very active, and spends long hours each day with her legs in a dependent position. She is morbidly obese. With respect to the current ulceration in the region of her right medial malleolus, she has been using an [employer] boot recently, but had previously used [employer]. She has been under the care of Dr. Zelaya. She was recently prescribed clindamycin in treatment for her right lower extremity ulceration. The patient has been previously treated for an ulceration near the left medial malleolus. Treatment was rendered at the [facility] in [place], [place], by Dr. Denys Aldana. The patient underwent endovenous laser ablation of the left great saphenous vein in February 2018. As result, her left lower extremity venous ulceration has healed, and has remained healed. Past Medical History Past Medical History: Chronic Problems Chronic venous insufficiency (Chronic) Varicose veins with ulcer and inflammation (Chronic) Chronic venous hypertension with ulcer and inflammation (Chronic) 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 (Chronic) Leg swelling (Chronic) Leg edema (Chronic) History of superficial thrombophlebitis (Chronic) History of venous ulceration (Chronic) Venous ulcer of ankle (Chronic) Morbid obesity with BMI of 45.0-49.9, adult (Chronic) Hyperlipidemia (Chronic) Lipodermatosclerosis (Chronic) Hyperpigmentation (Chronic) Surgical History: - - The patient has previously undergone open reduction and internal fixation of the right ankle, in approximately 1989. She is undergone laparoscopic cholecystectomy and right total hip replacement in the past. The patient is a G4, P1 AB 3 (spontaneous) Allergies/Adverse Reactions: Allergies acetaminophen [From Percocet] Allergy (Verified 08/01/18 14:07) Other oxycodone [From Percocet] Allergy (Verified 08/01/18 14:07) Other Home Medications: Ambulatory Orders Medication Instructions Recorded Vitamin B Complex 08/01/18 Vitamin D 1,000 iu PO DAILY 08/01/18 Zoloft 1 mg DAILY 08/01/18 Smoking Status: Never smoker Tobacco Use: Non-smoker Review of Systems Constitutional: Denies: Chills, Fever, Weight Change Eyes: Denies: Pain, Vision Change HEENT: Denies: Difficulty Hearing, Difficulty Swallowing, Sinus Congestion Cardiovascular: Denies: Chest Pain, Palpitations Respiratory: Denies: Cough, Shortness of Breath Gastrointestinal: Denies: Diarrhea, Nausea, Vomiting Genitourinary: Denies: Dysuria, Hematuria Endocrine: Denies: Heat/ Cold Intolerance, Polydipsia, Polyuria Hematologic/ Lymphatic: Denies: Easy Bruising, Easy Bleeding - Physical Exam Vital Signs Temp Pulse Resp BP 96.2 F L 68 16 145/90 H 08/30/18 10:09 08/30/18 10:09 08/30/18 10:09 08/30/18 10:09 General: Alert, Oriented x3, Cooperative, No apparent distress, Well developed, Well nourished HEENT: Atraumatic, PERRLA, EOMI, Normocephalic Oral: Moist Mucosa Neck: No JVD Lungs: Normal air movement Abdomen: Non-Distended Extremities: No clubbing, No cyanosis, No Calf Tenderness, - - There is no significant swelling or edema in the patient's lower extremities. The ulceration near the right medial malleolus appears smaller in size. Dimensions are documented elsewhere. There is no sign of infection or cellulitis. There is a small amount of bioburden. Chronic venous changes persist in the patient's lower extremities, with scattered varicosities throughout. Wound Measurements and Assessment WC - Nurse 1 - General Ulcer Measurement Start: 08/23/18 10:18 Freq: Status: Active Protocol: Activity Type Activity Date Activity User E-Sign Co-Sign Detail Recorded Client Recorded Date Recorded By Document 08/30/18 10:09 MW [id number] 08/30/18 10:16 MW 08/30/18 10:09 Wound Center Nurse 1 [Ulcer Assessment] #1 right medial ankle cluster -Combined with other wound No -Current Size (cm) - Length 0.3 -Current Size (cm) - Width 0.5 -Current Size (cm) - Depth 0.1 -Total Square Cm 0.15 -Photo Taken No -Epithelialization Small 1-33% -Tunneling No -Undermining/Tunneling No -Circular Undermining No -Exudate Amt None Present -Wound Margin Flat & Intact -Granulation Amt None Present (0 %) -Granulation Quality N/A -Slough/Fibrin Yes -Necrosis Amt Small (1-33%) -Necrotic Tissue Type Adherent Slough -Structure Exposed N/A -Texture (Capri-wound Skin Appearance) Assessed, Localized Edema -Moisture (Capri-wound Skin Appearance No Abnormality, ) Assessed -Color (Capri-wound Skin Appearance) Assessed, Hemosiderin Staining -Temperature (Capri-wound Skin No Abnormality Appearance) (Pt Warm) -Ulcer Cleansing soap and water -Foul Odor after Cleansing No -Anesthetic Used 4% Lidocaine Solution [Edema Assessment] -Lower Limb Edema Present Yes -Right Calf (cm) 38.0 -Right Ankle (cm) 24.5 -Left Calf (cm) 43.0 -Left Ankle (cm) 23.5 WC - Nurse 2 - General Ulcer CM Notes Start: 08/23/18 10:18 Freq: Status: Active Protocol: Activity Type Activity Date Activity User E-Sign Co-Sign Detail Recorded Client Recorded Date Recorded By Document 08/30/18 10:34 DV [id number] 08/30/18 10:36 DV 08/30/18 10:34 Wound Center Nurse 2 [Procedure/Treatment] #1 right medial ankle cluster -Time 10:36 -Correct Patient Yes -Correct Side, Site, Position Yes -Correct Procedure Yes -Procedure Performed Yes -Type of Procedure Debridement -Clinical Debridement Subcutaneous -Post Debridement Size (cm) - Length 0.3 -Post Debridement Size (cm) - Width 0.5 -Post Debridement Size (cm) - Depth 0.2 -Total Square Cm 0.15 -Wound/Ulcer Outcome Not Healed -Ulcer Cleansing Rinsed/ Irrigated with Saline -Foul Odor after Cleansing No -Bioengineered Tissue No -Bleeding Controlled with Pressure -Treatment Response Procedure Tolerated Well [See Physician Procedure note for Specifics] Pain Scale: 0-10 Numeric [Pain] -Is Patient Pain Free? Yes Neurological: Cranial nerves II-XII grossly intact, Neuro grossly intact Psych/Mental Status: Normal Affect, Appropriate, Alert and oriented to time, efra ce, person, mood and affect Debridement Note Post-Debridement Measurements/Treatment WC - Nurse 2 - General Ulcer CM Notes Start: 08/23/18 10:18 Freq: Status: Active Protocol: Activity Type Activity Date Activity User E-Sign Co-Sign Detail Recorded Client Recorded Date Recorded By Document 08/23/18 10:59 DV [id number] 08/23/18 11:01 DV Document 08/30/18 10:34 DV [id number] 08/30/18 10:36 DV 08/23/18 08/30/18 10:59 10:34 Wound Center Nurse 2 #1 right medial ankle cluster -Time 11:00 10:36 -Correct Patient Yes Yes -Correct Side, Site, Position Yes Yes -Correct Procedure Yes Yes -Procedure Performed Yes Yes -Type of Procedure Debridement Debridement -Clinical Debridement Subcutaneous Subcutaneous -Post Debridement Size (cm) - Length 0.9 0.3 -Post Debridement Size (cm) - Width 0.5 0.5 -Post Debridement Size (cm) - Depth 0.5 0.2 -Total Square Cm 0.45 0.15 -Wound/Ulcer Outcome Not Healed Not Healed -Ulcer Cleansing Rinsed/ Rinsed/ Irrigated with Irrigated with Saline Saline -Foul Odor after Cleansing No No -Bioengineered Tissue No No -Bleeding Controlled with Pressure Pressure -Offloading No -Treatment Response Procedure Procedure Tolerated Well Tolerated Well Pain Scale: 0-10 Numeric Is Patient Pain Free? Yes Yes Laterality: Right - Medial malleolus Type of Debridement: Excisional debridement Anesthesia Used: 5% Lidocaine Gel Depth: Down to and including healthy tissue, in the subcutaneous layer Percentage of wound debrided: 100 Instrument Used: 5mm curette Tissue Removed: Bioburden and nonviable tissue. Severity: Fat Layer Exposed Amount of bleeding with debridement: Mild Bleeding Controlled with: Compression and gauze Patient tolerated procedure well Assessment/Plan Active Problems Chronic venous insufficiency (Chronic) Varicose veins with ulcer and inflammation (Chronic) Chronic venous hypertension with ulcer and inflammation (Chronic) 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 (Chronic) Leg swelling (Chronic) Leg edema (Chronic) History of superficial thrombophlebitis (Chronic) History of venous ulceration (Chronic) Venous ulcer of ankle (Chronic) Morbid obesity with BMI of 45.0-49.9, adult (Chronic) Lipodermatosclerosis (Chronic) Hyperpigmentation (Chronic) Assessment: This is a 77-year-old female with a long-standing history of chronic venous insufficiency, varicose veins with ulceration and inflammation, postphlebitic syndrome with ulceration and inflammation, venous hypertension with ulceration and inflammation, and lower extremity swelling and edema. She presented with an ulceration near the right medial malleolus which had been present for approximately 3 months, and appears related to the patient's chronic venous disease. She has previously had a venous ulceration near the left medial malleolus, which was treated by means of endovenous laser ablation of the left great saphenous vein earlier this year, in [place], [place]. The patient presented for evaluation and management relative to the ulceration near the right medial malleolus. A noninvasive lower extremity arterial study was performed as well through the [facility] system, revealing no evidence of arterial insufficiency in either lower extremity. Records from [facility] have also been obtained, and have been reviewed. Wound cultures performed last week were positive for Staphylococcus aureus, and the patient has been placed on Bactrim DS twice daily, which continues until the current time. Recent laboratory studies have been obtained from the hospital in [place], [place]. Results are as follows: White blood count 6.8, hemoglobin 13.6, hematocrit 40.3, platelets 242,000, sodium 140, potassium 4.0, chloride 105, BUN 20, creatinine 0.8, calcium 9.3, total protein 7.1, albumin 3.9, total bilirubin 0.6. The patient has recently undergone a venous duplex examination, which reveals incompetence right great saphenous vein, 2 accessory saphenous veins, and a stna located 16 cm proximal to the right medial malleolus. Plan: We are to continue a regimen of conservative treatment. The measures recommended have been discussed with the patient in detail, as well as with her [id number], who is at the bedside. The patient is to elevate her lower extremities as much as possible. Elevation is to be to heart level, or higher. This is to be accomplished as much as possible. The patient is to continue sleeping in a recumbent position with her legs elevated. Leg elevation is to be implemented even during daytime hours. The patient has been encouraged to ambulate and to increase her activity. Prolonged idle standing and sitting has been discouraged. Weight loss has been recommended. Optimization of the patient's oral intake has been advised. We are to continue compression to the lower extremities by means of 3M 2 layer compression wrap to each lower extremity. Aquacel Ag is to be continued topically to the wound near the right medial malleolus. This will be accompanied by the use of a stasis pad. The compression wraps and Aquacel Ag are to be changed twice weekly. Ultimately, the patient may benefit from endothermal ablation of the right great saphenous vein, though conservative measures will be implemented preferentially. Such a procedure was performed in the left lower extremity, with evidence of patient benefit. The patient has completed her course of Bactrim DS. Influenza vaccine was not administered today. The patient is not a smoker. She weighs 277 pounds. She stands 5 feet 5 inches tall. Her BMI is 46. This places her in a class III obesity category. Weight loss has been recommended, in collaboration with the patient's primary care physician has been advised.
[2018-09-02 12:33] VITALS: BP 146/73; PULSE 67; RESP 16; TEMP 36.4; BMI 46.0
[2018-09-06 09:48] VITALS: BP 160/82; PULSE 72; RESP 16; TEMP 36.3; BMI 46.0
--- NOTE | 2018-09-06 11:06 | PCM.WC.HP ---
(1) Chronic venous insufficiency Status: Chronic Current Visit: Yes Code(s): I87.2 - Venous insufficiency (chronic) (peripheral) (2) Varicose veins with ulcer and inflammation Status: Chronic Current Visit: Yes Code(s): I83.209 - Varicose veins of unspecified lower extremity with both ulcer of unspecified site and inflammation; L97.909 - Non-pressure chronic ulcer of unspecified part of unspecified lower leg with unspecified severity (3) Chronic venous hypertension with ulcer and inflammation Status: Chronic Current Visit: Yes Qualifiers: Laterality: right Code(s): I87.339 - Chronic venous hypertension (idiopathic) with ulcer and inflammation of unspecified lower extremity; L97.909 - Non-pressure chronic ulcer of unspecified part of unspecified lower leg with unspecified severity (4) 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 Status: Chronic Current Visit: Yes Code(s): I87.039 - Postthrombotic syndrome with ulcer and inflammation of unspecified lower extremity (5) Leg swelling Status: Chronic Current Visit: Yes Code(s): M79.89 - Other specified soft tissue disorders (6) Leg edema Status: Chronic Current Visit: Yes Code(s): R60.0 - Localized edema (7) History of superficial thrombophlebitis Status: Chronic Current Visit: Yes (8) History of venous ulceration Status: Chronic Current Visit: Yes (9) Venous ulcer of ankle Status: Chronic Current Visit: Yes Qualifiers: Varicose vein presence: with varicose veins Laterality: right Non-pressure ulcer stage: with fat layer exposed Qualified Code(s): I83.013 - Varicose veins of right lower extremity with ulcer of ankle; L97.312 - Non-pressure chronic ulcer of right ankle with fat layer exposed Code(s): I83.003 - Varicose veins of unspecified lower extremity with ulcer of ankle; L97.309 - Non-pressure chronic ulcer of unspecified ankle with unspecified severity (10) Morbid obesity with BMI of 45.0-49.9, adult Status: Chronic Current Visit: Yes Code(s): E66.01 - Morbid (severe) obesity due to excess calories; Z68.42 - Body mass index (BMI) 45.0-49.9, adult (11) Hyperlipidemia Status: Chronic Current Visit: No Code(s): E78.5 - Hyperlipidemia, unspecified (12) Lipodermatosclerosis Status: Chronic Current Visit: Yes Qualifiers: Laterality: bilateral Qualified Code(s): I83.11 - Varicose veins of right lower extremity with inflammation; I83.12 - Varicose veins of left lower extremity with inflammation Code(s): I83.10 - Varicose veins of unspecified lower extremity with inflammation (13) Hyperpigmentation Status: Chronic Current Visit: Yes Code(s): L81.9 - Disorder of pigmentation, unspecified History of Present Illness Date of Service: 09/06/18 Chief Complaint: Chronic venous insufficiency, varicose veins with ulcer and inflammation, chronic venous hypertension with ulcer and inflammation, postphlebitic syndrome with ulcer and inflammation, history of superficial thrombophlebitis, swelling, edema, venous ulcer -right lower extremity History of Wound: This is a 77-year-old female with a long-standing history of chronic venous disease. She presents with an ulceration near the right medial malleolus which had been present for approximately 3 months. It occurred spontaneously, without any history of trauma. She has a history of superficial thrombophlebitis in the right lower extremity. This occurred nearly 30 years ago. She suffers from lower extremity varicose veins, and experiences swelling and edema in her lower extremities at days end. She sleeps in a recumbent position at night, with her legs slightly elevated. However, she is not very active, and spends long hours each day with her legs in a dependent position. She is morbidly obese. With respect to the current ulceration in the region of her right medial malleolus, she has been using an Unna boot recently, but had previously used [email or web address] Ag. She has been under the care of Dr. Zelaya. She was recently prescribed clindamycin in treatment for her right lower extremity ulceration. The patient has been previously treated for an ulceration near the left medial malleolus. Treatment was rendered at the [facility] in [place], [place], by Dr. Denys Aldana. The patient underwent endovenous laser ablation of the left great saphenous vein in February 2018. As result, her left lower extremity venous ulceration has healed, and has remained healed. Past Medical History Past Medical History: Chronic Problems Chronic venous insufficiency (Chronic) Varicose veins with ulcer and inflammation (Chronic) Chronic venous hypertension with ulcer and inflammation (Chronic) 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 (Chronic) Leg swelling (Chronic) Leg edema (Chronic) History of superficial thrombophlebitis (Chronic) History of venous ulceration (Chronic) Venous ulcer of ankle (Chronic) Morbid obesity with BMI of 45.0-49.9, adult (Chronic) Hyperlipidemia (Chronic) Lipodermatosclerosis (Chronic) Hyperpigmentation (Chronic) Surgical History: - - The patient has previously undergone open reduction and internal fixation of the right ankle, in approximately 1989. She is undergone laparoscopic cholecystectomy and right total hip replacement in the past. The patient is a G4, P1 AB 3 (spontaneous) Allergies/Adverse Reactions: Allergies acetaminophen [From Percocet] Allergy (Verified 08/01/18 14:07) Other oxycodone [From Percocet] Allergy (Verified 08/01/18 14:07) Other Home Medications: Ambulatory Orders Medication Instructions Recorded Vitamin B Complex 08/01/18 Vitamin D 1,000 iu PO DAILY 08/01/18 Zoloft 1 mg DAILY 08/01/18 Smoking Status: Never smoker Tobacco Use: Non-smoker Review of Systems Constitutional: Denies: Chills, Fever, Weight Change Eyes: Denies: Pain, Vision Change HEENT: Denies: Difficulty Hearing, Difficulty Swallowing, Sinus Congestion Cardiovascular: Denies: Chest Pain, Palpitations Respiratory: Denies: Cough, Shortness of Breath Gastrointestinal: Denies: Diarrhea, Nausea, Vomiting Genitourinary: Denies: Dysuria, Hematuria Endocrine: Denies: Heat/ Cold Intolerance, Polydipsia, Polyuria Hematologic/ Lymphatic: Denies: Easy Bruising, Easy Bleeding - Physical Exam Vital Signs Temp Pulse Resp BP 97.3 F L 72 16 160/82 H 09/06/18 09:48 09/06/18 09:48 09/06/18 09:48 09/06/18 09:48 General: Alert, Oriented x3, Cooperative, No apparent distress, Well developed, Well nourished HEENT: Atraumatic, PERRLA, EOMI, Normocephalic Oral: Moist Mucosa Neck: No JVD Lungs: Normal air movement Abdomen: Non-Distended Extremities: No clubbing, No cyanosis, No Calf Tenderness, - - The swelling and edema in the lower extremities appears to be reasonably well controlled, and only minimal in amount. The ulceration near the right medial malleolus continues to decrease in size. Dimensions are documented elsewhere. There is no sign of infection or cellulitis. There is a small amount of bioburden. Skin: No rashes Wound Measurements and Assessment - Nurse 1 - General Ulcer Measurement Start: 08/23/18 10:18 Freq: Status: Active Protocol: Activity Type Activity Date Activity User E-Sign Co-Sign Detail Recorded Client Recorded Date Recorded By Document 09/06/18 09:48 [facility] [id number] 09/06/18 09:53 [facility] 09/06/18 09:48 Wound Center Nurse 1 [Ulcer Assessment] #1 right medial ankle cluster -Current Size (cm) - Length 0.1 -Current Size (cm) - Width 0.1 -Current Size (cm) - Depth 0.1 -Total Square Cm 0.01 -Epithelialization Large 67-100% -Tunneling No -Undermining/Tunneling No -Circular Undermining No -Exudate Amt None Present -Structure Exposed N/A -Texture (Capri-wound Skin Appearance) Assessed, Scarring -Moisture (Capri-wound Skin Appearance Assessed,Dry/ ) Scaly -Color (Capri-wound Skin Appearance) Assessed, Hemosiderin Staining -Temperature (Capri-wound Skin No Abnormality Appearance) (Pt Warm) -Tenderness on Palpation (Capri-wound No Skin Appearance) -Ulcer Cleansing Rinsed/ Irrigated with Saline -Foul Odor after Cleansing No -Anesthetic Used 5% Lidocaine Gel [Edema Assessment] -Lower Limb Edema Present Yes -Right Calf (cm) 44.5 -Right Ankle (cm) 25.3 -Left Calf (cm) 49.0 -Left Ankle (cm) 25 - Nurse 2 - General Ulcer CM Notes Start: 08/23/18 10:18 Freq: Status: Active Protocol: Activity Type Activity Date Activity User E-Sign Co-Sign Detail Recorded Client Recorded Date Recorded By Document 09/06/18 10:52 DV [id number] 09/06/18 11:04 DV 09/06/18 10:52 Wound Center Nurse 2 [Procedure/Treatment] #1 right medial ankle cluster -Time 10:53 -Correct Patient Yes -Correct Side, Site, Position Yes -Correct Procedure Yes -Procedure Performed Yes -Type of Procedure Debridement -Clinical Debridement Subcutaneous -Post Debridement Size (cm) - Length 0.7 -Post Debridement Size (cm) - Width 0.4 -Post Debridement Size (cm) - Depth 0.2 -Total Square Cm 0.28 -Wound/Ulcer Outcome Not Healed -Ulcer Cleansing Rinsed/ Irrigated with Saline -Foul Odor after Cleansing No -Bioengineered Tissue No -Bleeding Controlled with Pressure -Offloading No -Treatment Response Procedure Tolerated Well [See Physician Procedure note for Specifics] Pain Scale: 0-10 Numeric [Pain] -Is Patient Pain Free? Yes Musculoskeletal: No Muscle Wasting Neurological: Cranial nerves II-XII grossly intact, Neuro grossly intact Psych/Mental Status: Normal Affect, Appropriate, Alert and oriented to time, place, person, mood and affect Debridement Note Post-Debridement Measurements/Treatment WC - Nurse 2 - General Ulcer CM Notes Start: 08/23/18 10:18 Freq: Status: Active Protocol: Activity Type Activity Date Activity User E-Sign Co-Sign Detail Recorded Client Recorded Date Recorded By Document 08/23/18 10:59 DV [id number] 08/23/18 11:01 DV Document 08/30/18 10:34 DV [id number] 08/30/18 10:36 DV Document 09/06/18 10:52 DV [id number] 09/06/18 11:04 DV 08/23/18 08/30/18 09/06/18 10:59 10:34 10:52 Wound Center Nurse 2 #1 right medial ankle cluster -Time 11:00 10:36 10:53 -Correct Patient Yes Yes Yes -Correct Side, Site, Position Yes Yes Yes -Correct Procedure Yes Yes Yes -Procedure Performed Yes Yes Yes -Type of Procedure Debridement Debridement Debridement -Clinical Debridement Subcutaneous Subcutaneous Subcutaneous -Post Debridement Size (cm) - Length 0.9 0.3 0.7 -Post Debridement Size (cm) - Width 0.5 0.5 0.4 -Post Debridement Size (cm) - Depth 0.5 0.2 0.2 -Total Square Cm 0.45 0.15 0.28 -Wound/Ulcer Outcome Not Healed Not Healed Not Healed -Ulcer Cleansing Rinsed/ Rinsed/ Rinsed/ Irrigated with Irrigated with Irrigated with Saline Saline Saline -Foul Odor after Cleansing No No No -Bioengineered Tissue No No No -Bleeding Controlled with Pressure Pressure Pressure -Offloading No No -Treatment Response Procedure Procedure Procedure Tolerated Well Tolerated Well Tolerated Well Pain Scale: 0-10 Numeric Is Patient Pain Free? Yes Yes Yes Laterality: Right - Medial malleolus Type of Debridement: Excisional debridement Anesthesia Used: 5% Lidocaine Gel Depth: Down to and including healthy tissue, in the subcutaneous layer Percentage of wound debrided: 100 Instrument Used: 3mm curette Tissue Removed: Bioburden and nonviable tissue Severity: Fat Layer Exposed Amount of bleeding with debridement: Mild Bleeding Controlled with: Compression and gauze Patient tolerated procedure well Assessment/Plan Active Problems Chronic venous insufficiency (Chronic) Varicose veins with ulcer and inflammation (Chronic) Chronic venous hypertension with ulcer and inflammation (Chronic) 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 (Chronic) Leg swelling (Chronic) Leg edema (Chronic) History of superficial thrombophlebitis (Chronic) History of venous ulceration (Chronic) Venous ulcer of ankle (Chronic) Morbid obesity with BMI of 45.0-49.9, adult (Chronic) Lipodermatosclerosis (Chronic) Hyperpigmentation (Chronic) Assessment: This is a 77-year-old female with a long-standing history of chronic venous insufficiency, varicose veins with ulceration and inflammation, postphlebitic syndrome with ulceration and inflammation, venous hypertension with ulceration and inflammation, and lower extremity swelling and edema. She presented with an ulceration near the right medial malleolus which had been present for approximately 3 months, and appears related to the patient's chronic venous disease. She has previously had a venous ulceration near the left medial malleolus, which was treated by means of endovenous laser ablation of the left great saphenous vein earlier this year, in [place], [place]. The patient presented for evaluation and management relative to the ulceration near the right medial malleolus. A noninvasive lower extremity arterial study was performed as well through the [facility] system, revealing no evidence of arterial insufficiency in either lower extremity. Records from [facility] have also been obtained, and have been reviewed. Wound cultures were positive for Staphylococcus aureus, and the patient has been placed on Bactrim DS twice daily, which has been completed. Recent laboratory studies have been obtained from the hospital in [place], [place]. Results are as follows: White blood count 6.8, hemoglobin 13.6, hematocrit 40.3, platelets 242,000, sodium 140, potassium 4.0, chloride 105, BUN 20, creatinine 0.8, calcium 9.3, total protein 7.1, albumin 3.9, total bilirubin 0.6. The patient has recently undergone a venous duplex examination, which reveals incompetence right great saphenous vein, 2 accessory saphenous veins, and a paper reel operator located 16 cm proximal to the right medial malleolus. Plan: We are to continue a regimen of conservative treatment. The measures recommended have been discussed with the patient in detail, as well as with her [id number], who is at the bedside. The patient is to elevate her lower extremities as much as possible. Elevation is to be to heart level, or higher. This is to be accomplished as much as possible. The patient is to continue sleeping in a recumbent position with her legs elevated. Leg elevation is to be implemented even during daytime hours. The patient has been encouraged to ambulate and to increase her activity. Prolonged idle standing and sitting has been discouraged. Weight loss has been recommended. Optimization of the patient's oral intake has been advised. We are to continue compression to the lower extremities by means of 3M 2 layer compression wrap to each lower extremity. We are to transition from the use of Aquacel Ag to the use of Crystal topically, which will be applied twice weekly with each change of her compression wraps. This will be accompanied by the use of a stasis pad. Ultimately, the patient may benefit from endothermal ablation of the right great saphenous vein, though conservative measures will be implemented preferentially. Such a procedure was performed in the left lower extremity, with evidence of patient benefit. The patient has had some difficulties in the past with graduated compression stockings, given that they tend to roll down. This is likely due to the patient's body habitus, and the fact that her calves are large in circumference. As result, we are to prescribe CircAid Velcro compression garments for each lower extremity, which will provide at least 20 to 30 mmHg compression, or 30 to 40 mm of compression, which may be of more benefit. Influenza vaccine was not administered today. The patient is not a smoker. She weighs 277 pounds. She stands 5 feet 5 inches tall. Her BMI is 46. This places her in a class III obesity category. Weight loss has been recommended, in collaboration with the patient's primary care physician has been advised.
[2018-09-13 08:38] VITALS: BP 163/95; PULSE 68; RESP 18; TEMP 36.4; BMI 46.0
[2018-09-20 10:31] VITALS: BP 165/87; PULSE 68; RESP 18; TEMP 35.5; BMI 46.0
--- NOTE | 2018-09-20 12:54 | PCM.WC.HP ---
(1) Chronic venous insufficiency Status: Chronic Current Visit: Yes Code(s): I87.2 - Venous insufficiency (chronic) (peripheral) (2) Varicose veins with ulcer and inflammation Status: Chronic Current Visit: Yes Code(s): I83.209 - Varicose veins of unspecified lower extremity with both ulcer of unspecified site and inflammation; L97.909 - Non-pressure chronic ulcer of unspecified part of unspecified lower leg with unspecified severity (3) Chronic venous hypertension with ulcer and inflammation Status: Chronic Current Visit: Yes Qualifiers: Laterality: right Code(s): I87.339 - Chronic venous hypertension (idiopathic) with ulcer and inflammation of unspecified lower extremity; L97.909 - Non-pressure chronic ulcer of unspecified part of unspecified lower leg with unspecified severity (4) 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 Status: Chronic Current Visit: Yes Code(s): I87.039 - Postthrombotic syndrome with ulcer and inflammation of unspecified lower extremity (5) Leg swelling Status: Chronic Current Visit: Yes Code(s): M79.89 - Other specified soft tissue disorders (6) Leg edema Status: Chronic Current Visit: Yes Code(s): R60.0 - Localized edema (7) History of superficial thrombophlebitis Status: Chronic Current Visit: Yes (8) History of venous ulceration Status: Chronic Current Visit: Yes (9) Venous ulcer of ankle Status: Chronic Current Visit: Yes Qualifiers: Varicose vein presence: with varicose veins Laterality: right Non-pressure ulcer stage: with fat layer exposed Qualified Code(s): I83.013 - Varicose veins of right lower extremity with ulcer of ankle; L97.312 - Non-pressure chronic ulcer of right ankle with fat layer exposed Code(s): I83.003 - Varicose veins of unspecified lower extremity with ulcer of ankle; L97.309 - Non-pressure chronic ulcer of unspecified ankle with unspecified severity (10) Morbid obesity with BMI of 45.0-49.9, adult Status: Chronic Current Visit: Yes Code(s): E66.01 - Morbid (severe) obesity due to excess calories; Z68.42 - Body mass index (BMI) 45.0-49.9, adult (11) Hyperlipidemia Status: Chronic Current Visit: No Code(s): E78.5 - Hyperlipidemia, unspecified (12) Lipodermatosclerosis Status: Chronic Current Visit: Yes Qualifiers: Laterality: bilateral Qualified Code(s): I83.11 - Varicose veins of right lower extremity with inflammation; I83.12 - Varicose veins of left lower extremity with inflammation Code(s): I83.10 - Varicose veins of unspecified lower extremity with inflammation (13) Hyperpigmentation Status: Chronic Current Visit: Yes Code(s): L81.9 - Disorder of pigmentation, unspecified History of Present Illness Date of Service: 09/20/18 Chief Complaint: Chronic venous insufficiency, varicose veins with ulcer and inflammation, chronic venous hypertension with ulcer and inflammation, postphlebitic syndrome with ulcer and inflammation, history of superficial thrombophlebitis, swelling, edema, venous ulcer -right lower extremity History of Wound: This is a 77-year-old female with a long-standing history of chronic venous disease. She presents with an ulceration near the right medial malleolus which had been present for approximately 3 months. It occurred spontaneously, without any history of trauma. She has a history of superficial thrombophlebitis in the right lower extremity. This occurred nearly 30 years ago. She suffers from lower extremity varicose veins, and experiences swelling and edema in her lower extremities at days end. She sleeps in a recumbent position at night, with her legs slightly elevated. However, she is not very active, and spends long hours each day with her legs in a dependent position. She is morbidly obese. With respect to the current ulceration in the region of her right medial malleolus, she has been using an Unna boot recently, but had previously used Draker Ag. She has been under the care of Dr. Zelaya. She was recently prescribed clindamycin in treatment for her right lower extremity ulceration. The patient has been previously treated for an ulceration near the left medial malleolus. Treatment was rendered at the [facility] in [place], [place], by Dr. Denys Aldana. The patient underwent endovenous laser ablation of the left great saphenous vein in February 2018. As result, her left lower extremity venous ulceration has healed, and has remained healed. Past Medical History Past Medical History: Chronic Problems Chronic venous insufficiency (Chronic) Varicose veins with ulcer and inflammation (Chronic) Chronic venous hypertension with ulcer and inflammation (Chronic) 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 (Chronic) Leg swelling (Chronic) Leg edema (Chronic) History of superficial thrombophlebitis (Chronic) History of venous ulceration (Chronic) Venous ulcer of ankle (Chronic) Morbid obesity with BMI of 45.0-49.9, adult (Chronic) Hyperlipidemia (Chronic) Lipodermatosclerosis (Chronic) Hyperpigmentation (Chronic) Surgical History: - - The patient has previously undergone open reduction and internal fixation of the right ankle, in approximately 1989. She is undergone laparoscopic cholecystectomy and right total hip replacement in the past. The patient is a G4, P1 AB 3 (spontaneous) Allergies/Adverse Reactions: Allergies acetaminophen [From Percocet] Allergy (Verified 08/01/18 14:07) Other oxycodone [From Percocet] Allergy (Verified 08/01/18 14:07) Other Home Medications: Ambulatory Orders Medication Instructions Recorded Vitamin B Complex 08/01/18 Vitamin D 1,000 iu PO DAILY 08/01/18 Zoloft 1 mg DAILY 08/01/18 Smoking Status: Never smoker Tobacco Use: Non-smoker Review of Systems Constitutional: Denies: Chills, Fever, Weight Change Eyes: Denies: Pain, Vision Change HEENT: Denies: Difficulty Hearing, Difficulty Swallowing, Sinus Congestion Cardiovascular: Denies: Chest Pain, Palpitations Respiratory: Denies: Cough, Shortness of Breath Gastrointestinal: Denies: Diarrhea, Nausea, Vomiting Genitourinary: Denies: Dysuria, Hematuria Endocrine: Denies: Heat/ Cold Intolerance, Polydipsia, Polyuria Hematologic/ Lymphatic: Denies: Easy Bruising, Easy Bleeding - Physical Exam Vital Signs Temp Pulse Resp BP 96 F L 68 18 165/87 H 09/20/18 10:31 09/20/18 10:31 09/20/18 10:31 09/20/18 10:31 General: Alert, Oriented x3, Cooperative, No apparent distress, Well developed, Well nourished HEENT: Atraumatic, PERRLA, EOMI, Normocephalic Oral: Moist Mucosa Neck: No JVD Lungs: Normal air movement Abdomen: Non-Distended, Obese Extremities: No clubbing, No cyanosis, No edema, No Calf Tenderness, - - The swelling and edema in the patient's lower extremities appears to be reasonably well controlled. The ulceration near the right medial malleolus is now completely healed and epithelialized. Chronic scattered varicosities persist in both lower extremities. Skin: No rashes, No breakdown Wound Measurements and Assessment WC - Nurse 1 - General Ulcer Measurement Start: 08/23/18 10:18 Freq: Status: Active Protocol: Activity Type Activity Date Activity User E-Sign Co-Sign Detail Recorded Client Recorded Date Recorded By Document 09/20/18 10:31 DL [id number] 09/20/18 10:41 DL 09/20/18 10:31 Wound Center Nurse 1 [Ulcer Assessment] #1 right medial ankle cluster -Current Size (cm) - Length 0 -Current Size (cm) - Width 0 -Current Size (cm) - Depth 0 -Total Square Cm 0 -Photo Taken Yes -Exudate Amt None Present -Wound Margin Flat & Intact -Granulation Amt Large (67-100%) -Granulation Quality [place] -Necrosis Amt None Present (0 %) -Structure Exposed N/A -Texture (Capri-wound Skin Appearance) Scarring -Moisture (Capri-wound Skin Appearance No Abnormality ) -Color (Capri-wound Skin Appearance) Hemosiderin Staining -Temperature (Capri-wound Skin No Abnormality Appearance) (Pt Warm) -Tenderness on Palpation (Capri-wound No Skin Appearance) -Ulcer Cleansing Wound Cleanser -Foul Odor after Cleansing No [Edema Assessment] -Right Calf (cm) 37.5 -Right Ankle (cm) 23.4 -Left Calf (cm) 39 -Left Ankle (cm) 23.2 Musculoskeletal: No Muscle Wasting Neurological: Cranial nerves II-XII grossly intact, Neuro grossly intact Psych/Mental Status: Normal Affect, Appropriate, Alert and oriented to time, place, person, mood and affect Debridement Note Post-Debridement Measurements/Treatment WC - Nurse 2 - General Ulcer CM Notes Start: 08/23/18 10:18 Freq: Status: Active Protocol: Activity Type Activity Date Activity User E-Sign Co-Sign Detail Recorded Client Recorded Date Recorded By Document 08/23/18 10:59 DV [id number] 08/23/18 11:01 DV Document 08/30/18 10:34 DV [id number] 08/30/18 10:36 DV Document 09/06/18 10:52 DV [id number] 09/06/18 11:04 DV 08/23/18 08/30/18 09/06/18 10:59 10:34 10:52 Wound Center Nurse 2 #1 right medial ankle cluster -Time 11:00 10:36 10:53 -Correct Patient Yes Yes Yes -Correct Side, Site, Position Yes Yes Yes -Correct Procedure Yes Yes Yes -Procedure Performed Yes Yes Yes -Type of Procedure Debridement Debridement Debridement -Clinical Debridement Subcutaneous Subcutaneous Subcutaneous -Post Debridement Size (cm) - Length 0.9 0.3 0.7 -Post Debridement Size (cm) - Width 0.5 0.5 0.4 -Post Debridement Size (cm) - Depth 0.5 0.2 0.2 -Total Square Cm 0.45 0.15 0.28 -Wound/Ulcer Outcome Not Healed Not Healed Not Healed -Ulcer Cleansing Rinsed/ Rinsed/ Rinsed/ Irrigated with Irrigated with Irrigated with Saline Saline Saline -Foul Odor after Cleansing No No No -Bioengineered Tissue No No No -Bleeding Controlled with Pressure Pressure Pressure -Offloading No No -Treatment Response Procedure Procedure Procedure Tolerated Well Tolerated Well Tolerated Well Pain Scale: 0-10 Numeric Is Patient Pain Free? Yes Yes Yes No debridement was completed today - The patient is now completely healed and epithelialized. Assessment/Plan Active Problems Chronic venous insufficiency (Chronic) Varicose veins with ulcer and inflammation (Chronic) Chronic venous hypertension with ulcer and inflammation (Chronic) 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 (Chronic) Leg swelling (Chronic) Leg edema (Chronic) History of superficial thrombophlebitis (Chronic) History of venous ulceration (Chronic) Venous ulcer of ankle (Chronic) Morbid obesity with BMI of 45.0-49.9, adult (Chronic) Lipodermatosclerosis (Chronic) Hyperpigmentation (Chronic) Assessment: This is a 77-year-old female with a long-standing history of chronic venous insufficiency, varicose veins with ulceration and inflammation, postphlebitic syndrome with ulceration and inflammation, venous hypertension with ulceration and inflammation, and lower extremity swelling and edema. She presented with an ulceration near the right medial malleolus which had been present for approximately 3 months, and appears related to the patient's chronic venous disease. She has previously had a venous ulceration near the left medial malleolus, which was treated by means of endovenous laser ablation of the left great saphenous vein earlier this year, in [place], [place]. The patient presented for evaluation and management relative to the ulceration near the right medial malleolus. A noninvasive lower extremity arterial study was performed as well through the [employer] system, revealing no evidence of arterial insufficiency in either lower extremity. Records from [facility] have also been obtained, and have been reviewed. Wound cultures were positive for Staphylococcus aureus, and the patient has been placed on Bactrim DS twice daily, which has been completed. Recent laboratory studies have been obtained from the hospital in [place], [place]. Results are as follows: White blood count 6.8, hemoglobin 13.6, hematocrit 40.3, platelets 242,000, sodium 140, potassium 4.0, chloride 105, BUN 20, creatinine 0.8, calcium 9.3, total protein 7.1, albumin 3.9, total bilirubin 0.6. The patient has recently undergone a venous duplex examination, which reveals incompetence right great saphenous vein, 2 accessory saphenous veins, and a platform software engineer located 16 cm proximal to the right medial malleolus. As of today, the patient's right lower extremity ulceration is completely healed. Plan: Patient's right lower extremity ulceration is completely healed and epithelialized. She is to be discharged. She has obtained a CircAid Velcro compression garment for her right lower extremity, and has been instructed in the appropriate means of application. Her [id number] is present as well, and has also been instructed. Patient is to obtain a second garment for her left lower extremity as well. She has been instructed to elevate her lower extremities as much as possible. She has been advised to continue with an active lifestyle. Weight loss has also been recommended. She will follow-up henceforth on an as-needed basis. The patient is to elevate her lower extremities as much as possible. Elevation is to be to heart level, or higher. This is to be accomplished as much as possible. The patient is to continue sleeping in a recumbent position with her legs elevated. Leg elevation is to be implemented even during daytime hours. The patient has been encouraged to ambulate and to increase her activity. Prolonged idle standing and sitting has been discouraged. Weight loss has been recommended. She will be discharged, and follow-up henceforth as needed. Influenza vaccine was not administered today. The patient is not a smoker. She weighs 277 pounds. She stands 5 feet 5 inches tall. Her BMI is 46. This places her in a class III obesity category. Weight loss has been recommended, in collaboration with the patient's primary care physician has been advised.
== END 2018-09-21 23:59 ==
LOC: WC 10:00
PROVIDERS: Family Provider Family Medicine; PCP Family Medicine; Referring Provider Surgery; Visit Provider Surgery
DX: I83.213 Varicose veins of right lower extremity with both ulcer of ankle and inflammation (principal); L97.312 Non-pressure chronic ulcer of right ankle with fat layer exposed; E66.01 Morbid (severe) obesity due to excess calories; Z71.3 Dietary counseling and surveillance; Z68.42 Body mass index [BMI] 45.0-49.9, adult; R60.0 Localized edema; Z79.899 Other long term (current) drug therapy; E78.5 Hyperlipidemia, unspecified
CPT/HCPCS: 11042; 29581; 99211; 99212; 99213; G0463